=== PATIENT | female | born 1960 | race Hispanic/Latino ===

== ENCOUNTER 2017-02-10 19:25 | Inpatient (IN) | payer MEDICARE, MEDICAID, OTHER ==
[2017-02-10 19:30] VITALS: BMI 26.5
--- NOTE | 2017-02-10 19:37 | ED PDOC ---
Arrival/HPI <Robert Roman - Last Filed: 02/11/17 05:37> - General Historian: Patient - History of Present Illness Time/Duration: Prior to Arrival Symptom Onset: Sudden Symptom Course: Improving <Laron Burns DO - Last Filed: 02/18/17 20:23> - General Chief Complaint: Substance Abuse Time Seen by Provider: 02/10/17 19:30 - History of Present Illness Narrative History of Present Illness (Text): 02/10/17 19:37 56 year old female brought in by EMS after being found unresponsive by her brother at home prior to arrival. EMS reports they gave intranasal Narcan with positive effect. As per EMS, pupils initially pinpoint. On arrival to the emergency department, patient states she was just sleeping. Denies chest pain, shortness of breath, abdominal pain, cough, fever, nausea, vomiting, or other complaints. (Laron Burns DO) Modifying Factors (Text): Intranasal Narcan given with positive effect (Laron Burns DO) Associated Symptoms (Text): None (Laron Burns DO) Past Medical History - Provider Review Nursing Documentation Reviewed: Yes - Past History Past History: Non-Contributing - Infectious Disease Hx of Infectious Diseases: None - Tetanus Immunization Tetanus Immunization: Unknown - Reproductive Menopause: Yes - Cardiac Hx Cardiac Disorders: Yes Hx Congestive Heart Failure: Yes Hx Hypertension: Yes Hx Peripheral Edema: Yes Hx Peripheral Vascular Disease: (VARICOSITIES WITH VEIN STRIPPING) - Pulmonary Hx Respiratory Disorders: Yes Hx Asthma: Yes Hx Bronchitis: Yes Hx Chronic Obstructive Pulmonary Disease (COPD): Yes Hx Pneumonia: Yes - Neurological Hx Neurological Disorder: Yes (NEAR SYNCOPE) Hx Dizziness: Yes Hx Migraine: Yes - HEENT Hx HEENT Disorder: Yes Hx Glaucoma: Yes - Renal Hx Renal Disorder: Yes Hx Kidney Stones: Yes (WITH SX X2 AND LITHOTRYPSY) - Endocrine/Metabolic Hx Endocrine Disorders: Yes Hx Diabetes Mellitus Type 2: Yes (iddm) - Hematological/Oncological Hx Blood Disorders: Yes Hx Anemia: Yes - Integumentary Hx Dermatological Disorder: No - Musculoskeletal/Rheumatological Hx Falls: No - Gastrointestinal Hx Gastrointestinal Disorders: Yes Hx Gastroesophageal Reflux: Yes - Genitourinary/Gynecological Hx Genitourinary Disorders: Yes (CEASEREAN SECTION X 2) Hx Urinary Tract Infection: Yes - Psychiatric Hx Psychophysiologic Disorder: Yes Hx Anxiety: Yes Hx Depression: Yes Hx Substance Use: No - Past Surgical History Past Surgical History: No Previous - Surgical History Hx Cardiac Catheterization: Yes - Anesthesia Hx Anesthesia: Yes Hx Anesthesia Reactions: No Hx Malignant Hyperthermia: No - Suicidal Assessment Feels Threatened In Home Enviroment: No <Laron Burns DO - Last Filed: 02/18/17 20:23> Family/Social History - Physician Review Nursing Documentation Reviewed: Yes Family/Social History: Unknown Family HX Smoking Status: Unknown If Ever Smoked Hx Alcohol Use: No Hx Substance Use: No Hx Substance Use Treatment: No <Laron Burns DO - Last Filed: 02/18/17 20:23> Allergies/Home Meds <Robert Roman - Last Filed: 02/11/17 05:37> <Laron Burns DO - Last Filed: 02/18/17 20:23> Allergies/Adverse Reactions: Allergies amoxicillin Allergy (Verified 11/17/15 09:46) VOMITING naproxen [From Naprosyn] Allergy (Verified 11/17/15 09:46) VOMITING doxycycline calcium [From Vibramycin] Adverse Reaction (Verified 11/17/15 09:46) VOMITING doxycycline hyclate [From Vibramycin] Adverse Reaction (Verified 11/17/15 09:46) VOMITING doxycycline monohydrate [From Vibramycin] Adverse Reaction (Verified 11/17/15 09 :46) VOMITING Home Medications: Home Meds Medication Instructions Recorded Confirmed Insulin Detemir [Levemir] 20 unit SC HS PRN 08/12/13 02/11/17 Escitalopram [Lexapro] 20 mg PO DAILY 12/28/14 02/12/17 Alprazolam [Xanax] 2 mg PO BID PRN 02/12/17 02/12/17 Amitriptyline [Elavil] 50 mg PO HS PRN 02/12/17 02/12/17 Quetiapine Fumarate [Seroquel] 100 mg PO TID 02/12/17 02/12/17 rOPINIRole [Requip] 1 mg PO HS 02/12/17 02/12/17 Review of Systems - Physician Review All systems were reviewed & negative as marked: Yes - Review of Systems Constitutional: absent: Fevers Eyes: absent: Vision Changes ENT: absent: Hearing Changes Respiratory: absent: SOB, Cough Cardiovascular: absent: Chest Pain Gastrointestinal: absent: Abdominal Pain, Nausea, Vomiting Musculoskeletal: absent: Back Pain Neurological: absent: Headache, Dizziness <Laron Burns DO - Last Filed: 02/18/17 20:23> Physical Exam Vital Signs Reviewed: Yes Temperature: Afebrile Blood Pressure: Normal Pulse: Tachycardic Respiratory Rate: Normal Appearance: Positive for: Well-Appearing, Non-Toxic, Comfortable Pain Distress: None Mental Status: Positive for: other (Mildly sleepy) - Systems Exam Head: Present: Atraumatic, Normocephalic Pupils: Present: PERRL Extroacular Muscles: Present: EOMI Conjunctiva: Present: Normal Mouth: Present: Moist Mucous Membranes Neck: Present: Normal Range of Motion Respiratory/Chest: Present: Clear to Auscultation, Good Air Exchange. No: Respiratory Distress, Accessory Muscle Use Cardiovascular: Present: Regular Rate and Rhythm, Normal S1, S2. No: Murmurs Abdomen: Present: Normal Bowel Sounds. No: Tenderness, Distention, Peritoneal Signs Back: Present: Normal Inspection Upper Extremity: Present: Normal Inspection. No: Cyanosis, Edema Lower Extremity: Present: Normal Inspection. No: Edema Neurological: Present: GCS=15, CN II-XII Intact, Speech Normal Skin: Present: Warm, Dry, Normal Color. No: Rashes Psychiatric: Present: Oriented x 3, Other (Mildly sleepy) <Laron Burns DO - Last Filed: 02/18/17 20:23> Vital Signs Temp Pulse Resp BP Pulse Ox 02/11/17 08:30 90 16 137/93 H 96 02/11/17 07:30 85 16 128/94 H 97 02/11/17 06:00 82 02/11/17 05:50 98.2 F 100 H 18 150/98 H 91 L 02/11/17 03:45 98.3 F 99 H 18 138/72 89 L 02/10/17 23:59 98.5 F 102 H 16 123/95 H 88 L 02/10/17 21:31 102 H 16 138/95 H 91 L 02/10/17 19:39 99.5 F 106 H 16 144/98 H 90 L 02/10/17 19:35 103 H 16 134/91 H 90 L Medical Decision Making <Robert Roman - Last Filed: 02/11/17 05:37> - EKG Interpretation Interpreted by ED Physician: Yes Type: 12 lead EKG <Katy Laron JONES - Last Filed: 02/18/17 20:23> ED Course and Treatment: 02/11/17 03:55 Patient felt nauseated and had 1 episode of coffee ground emesis. Denies any abdominal pain or bloody stool. States she took extra Xanax as she was very stressful. Denies any cocaine use, alcohol use, or other illicit substance use. States she was feeling unwell earlier prior to presenting to emergency department. 02/11/17 05:[address] Brady, covering for , agrees with the plan to admit patient to telemetry for GI bleed. Accepts patient under his service. (Abel,Robert Hahn) Impression: 56 year old female brought in by EMS after being found unresponsive by her brother at home prior to arrival. Differential Diagnosis include but are not limited to: Overdose Plan: -- EKG, Chest X-ray -- Labs -- Reassess and disposition Prior Visits: Notes and results from previous visits were reviewed. Patient last seen in ED on 10/29/16 for headache, nausea, photophobia, and admitted for Pneumonia, Urinary tract bacterial infections. Progress Notes: (Laron Burns DO) - Lab Interpretations Lab Results: 02/10/17 19:34 02/10/17 20:25 Lab Results 02/10/17 23:00: Urine Color Yellow, Urine Appearance Clear, Urine pH 6.0, Ur Specific Northrop >= 1.030, Urine Protein 30 H, Urine Glucose (UA) Negative, Urine Ketones Negative, Urine Blood Negative, Urine Nitrate Negative, Urine Bilirubin Negative, Urine Urobilinogen 0.2, Ur Leukocyte Esterase Negative, Urine RBC 0 - 2, Urine WBC 0 - 2, Ur Epithelial Cells 0 - 2, Calcium Oxalate Crystal Occ, Urine Bacteria Few 02/10/17 23:00: Urine Opiates Screen Positive H, Urine Methadone Screen Negative , Ur Barbiturates Screen Negative, Ur Phencyclidine Scrn Negative, Ur Amphetamines Screen Negative, U Benzodiazepines Scrn Positive H, U Oth Cocaine Metabols Negative, U Cannabinoids Screen Negative 02/10/17 20:25: Sodium 133, Potassium 5.3 H, Chloride 98, Carbon Dioxide 26, Anion Gap 14, BUN 13, Creatinine 0.9, Est GFR ( Amer) > 60, Est GFR (Non- Af Amer) > 60, Random Glucose 209 H, Calcium 9.2, Total Bilirubin 0.6, AST 28, ALT 43, Alkaline Phosphatase 92, Lactate Dehydrogenase 392, Total Creatine Kinase 158, Troponin I 0.11 D, Total Protein 8.5 H, Albumin 3.9, Globulin 4.7, Albumin/Globulin Ratio 0.8 L, Lipase 13 L 02/10/17 19:34: Salicylates < 1 L, Acetaminophen < 10.0 L 02/10/17 19:34: Alcohol, Quantitative < 10 02/10/17 19:34: WBC 11.2 H D, RBC 5.10, Hgb 16.1 H, Hct 49.3 H, MCV 96.7, MCH 31.6, MCHC 32.7, RDW 15.9 H, Plt Count 248, MPV 9.9, Gran % 90.3 H, Lymph % ( Auto) 7.1 L, Haakon % (Auto) 2.4, Eos % (Auto) 0.1 L, Baso % (Auto) 0.1, Gran # 10.11 H, Lymph # 0.8 L, Haakon # 0.3, Eos # 0.0, Baso # 0.01 02/10/17 19:32: POC Glucose (mg/dL) 211 H - RAD Interpretation Radiology Orders: 02/10/17 19:31 CHEST PORTABLE [RAD] Stat - EKG Interpretation EKG Interpretation (Text): EKG shows 107 BPM with normal axis, normal intervals, isolated t-wave depressions in lead III (Laron Burns DO) - Medication Orders Current Medication Orders: Discontinued Medications Acetaminophen (Tylenol 325mg Tab) 650 mg PO Q6H PRN PRN Reason: Headache Last Admin: 02/13/17 05:55 Dose: 650 mg Re-Assess: [facility] Pain/Vitals Document 02/13/17 06:55 DS (Rec: 02/13/17 07:01 DS [id number]) Pain Reassessment Is This A Pain ReAssessment? Yes Sleep Is patient sleeping during reassessment? No Presence of Pain Presence of Pain No Acetaminophen/Butalbital/Caffeine (Fioricet) 1 tab PO Q8H PRN PRN Reason: Headache Last Admin: 02/13/17 04:40 Dose: 1 tab Re-Assess: MAR Pain Assessment Document 02/13/17 05:40 DS (Rec: 02/13/17 05:52 DS [id number]) Pain Reassessment Is this a pain reassessment? 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 Albuterol/Ipratropium (Duoneb 3 Mg/0.5 Mg (3 Ml) Ud) 3 ml IH [id number] [facility] Last Admin: 02/13/17 01:07 Dose: Not Given Non-Admin Reason: Patient Refused Alprazolam (Xanax) 0.5 mg PO QID THU PRN Reason: Protocol Alprazolam (Xanax) 0.5 mg PO Q6H PRN; Protocol PRN Reason: Anxiety Last Admin: 02/13/17 08:00 Dose: 0.5 mg Re-Assess: Reassess Psych Meds Document 02/13/17 09:00 RDS (Rec: 02/13/17 09:03 RDS [id number]) Reassess Psych Med Effective Alprazolam (Xanax) 0.5 mg PO ONCE ONE PRN Reason: Protocol Stop: 02/12/17 15:34 Last Admin: 02/12/17 16:30 Dose: 0.5 mg Re-Assess: Reassess Psych Meds Document 02/12/17 17:30 CERAMIC WORKER (Rec: 02/12/17 19:19 CERAMIC WORKER [id number]) Reassess Psych Med Effective Amitriptyline HCl (Elavil) 50 mg PO HS PRN PRN Reason: Restlessness Last Admin: 02/12/17 21:18 Dose: 50 mg Escitalopram Oxalate (Lexapro) 20 mg PO DAILY THU Last Admin: 02/13/17 09:18 Dose: 20 mg Guaifenesin (Robitussin) 200 mg PO STAT STA Stop: 02/12/17 00:38 Last Admin: 02/12/17 00:46 Dose: 200 mg Guaifenesin (Robitussin) 200 mg PO Q4H PRN PRN Reason: Cough and congestion Last Admin: 02/13/17 08:00 Dose: 200 mg Sodium Chloride (Sodium Chloride 0.9%) 1,000 mls @ 100 mls/hr IV .Q10H [facility] Last Admin: 02/12/17 16:29 Dose: 100 mls/hr Pantoprazole Sodium (Protonix 40mg Ivpb) 40 mg in 100 mls @ 20 mls/hr IVPB .Q5H [facility] Last Admin: 02/12/17 16:36 Dose: 20 mls/hr Sodium Chloride (Sodium Chloride 0.9%) 1,000 mls @ 50 mls/hr IV .Q20H [facility] Last Admin: 02/12/17 19:40 Dose: 50 mls/hr Insulin Human Regular (Humulin R Med) 0 units SC ACHS [facility] PRN Reason: Protocol Last Admin: 02/13/17 11:55 Dose: Not Given Non-Admin Reason: Patient Refused Methylprednisolone (Solu-Medrol) 40 mg IVP ONCE ONE Stop: 02/12/17 14:37 Last Admin: 02/12/17 15:31 Dose: 40 mg Nicotine (Nicoderm Cq) 1 patch TD DAILY [facility] Last Admin: 02/13/17 09:18 Dose: 1 patch Pantoprazole Sodium (Protonix Inj) 80 mg IVP STAT STA Stop: 02/11/17 03:52 Last Admin: 02/11/17 04:09 Dose: 80 mg Pantoprazole Sodium (Protonix Ec Tab) 40 mg PO 0630 [facility] Last Admin: 02/13/17 05:35 Dose: 40 mg Pneumococcal Polyvalent Vaccine (Pneumovax 23 Vaccine) 0.5 ml IM .ONCE ONE Stop: 02/11/17 13:49 Quetiapine Fumarate (Seroquel) 100 mg PO TID [facility] PRN Reason: Protocol Last Admin: 02/13/17 09:17 Dose: 100 mg Re-Assess: Reassess Psych Meds Document 02/13/17 10:17 RDS (Rec: 02/13/17 10:37 RDS [id number]) Reassess Psych Med Effective Ropinirole HCl (Requip) 1 mg PO HS [facility] Last Admin: 02/12/17 21:18 Dose: 1 mg <Robert Roman T - Last Filed: 02/11/17 05:37> - Scribe Statement The provider has reviewed the documentation as recorded by the Scribe <Laron Burns DO - Last Filed: 02/18/17 20:23> - Scribe Statement Alphonse Franco Provider Scribe Attestation: All medical record entries made by the Scribe were at my direction and personally dictated by me. I have reviewed the chart and agree that the record accurately reflects my personal performance of the history, physical exam, medical decision making, and the department course for this patient. I have also personally directed, reviewed, and agree with the discharge instructions and disposition. (Laron Burns DO) Disposition/Present on Arrival - Present on Arrival Any Indicators Present on Arrival: Yes - Disposition Have Diagnosis and Disposition been Completed?: Yes Disposition Time: 03:55 Patient Plan: Admission, Telemetry <Robert Roman - Last Filed: 02/11/17 05:37> - Present on Arrival Any Indicators Present on Arrival: No History of DVT/PE: No History of Uncontrolled Diabetes: No Urinary Catheter: Yes (inserted in ed) History of Decub. Ulcer: No History Surgical Site Infection Following: None <Laron Burns DO - Last Filed: 02/18/17 20:23> - Disposition Diagnosis: GI bleed Disposition: HOSPITALIZED Condition: GUARDED
[2017-02-10 19:46] LABS: ADD MANUAL DIFF? NO
[2017-02-10 19:55] LABS: BASO # 0.01 K/mm3 (0.0-2.0); BASO % 0.1 % (0.0-3.0); EOS % 0.1 % (1.5-5.0); GRAN # 10.11 (1.4-6.5); GRAN % 90.3 % (50.0-68.0); HEMATOCRIT 49.3 % (36.0-48.0); LYMPH # 0.8 (1.2-3.4); LYMPH % 7.1 % (22.0-35.0); MEAN CELL VOLUME 96.7 fL (80.0-105.0); MEAN CORPUSCULAR HEMOGLOBIN 31.6 pg (25.0-35.0); MEAN CORPUSCULAR HGB CONC 32.7 g/dl (31.0-37.0); MEAN PLATELET VOLUME 9.9 fl (7.0-11.0); MONO # 0.3 (0.1-0.6); MONO % 2.4 % (1.0-6.0); PLATELET COUNT 248 10^3/uL (120.0-450.0); RED CELL DISTRIBUTION WIDTH 15.9 % (11.5-14.5); WHITE BLOOD COUNT 11.2 10^3/ul (4.5-11.0)
[2017-02-10 20:44] LABS: ALB/GLOB RATIO 0.8 (1.1-1.8); ALKALINE PHOSPHATASE 92 U/L (38-133); ALT/SGPT 43 U/L (7-56); AST/SGOT 28 U/L (15-39); BILIRUBIN,TOTAL 0.6 mg/dL (0.2-1.3); BLOOD UREA NITROGEN 13 mg/dL (7-21); CALCIUM 9.2 mg/dL (8.4-10.5); CARBON DIOXIDE 26 mmol/L (21-33); CHLORIDE 98 mmol/L (98-107); GFR AFRICAN-AMERICAN > 60; GLUCOSE,RANDOM 209 mg/dL (70-110); LIPASE 13 U/L (23-300); POTASSIUM 5.3 mmol/L (3.6-5.0); SODIUM 133 mmol/L (132-148); TOTAL PROTEIN 8.5 g/dL (5.8-8.3)
[2017-02-10 20:55] LABS: TROPONIN I 0.11 ng/mL
[2017-02-10] MEDS: Sodium Chloride 0.9% 1,000 ML IV SCH (21:22)
[2017-02-10 23:15] LABS: URINE BILIRUBIN NEGATIVE (NEGATIVE); URINE BLOOD NEGATIVE (NEGATIVE); URINE GLUCOSE (UA) NEGATIVE (NEGATIVE); URINE KETONE NEGATIVE (NEGATIVE); URINE LEUKOCYTE ESTERASE NEGATIVE Leu/uL (NEGATIVE); URINE PROTEIN 30 mg/dL (<30 mg/dL); URINE UROBILINOGEN 0.2 E.U./dL (<1 E.U./dL)
[2017-02-10 23:17] LABS: URINE APPEARANCE CLEAR (CLEAR); URINE COLOR YELLOW (YELLOW)
[2017-02-10 23:20] LABS: URINE BACTERIA FEW (NEG); URINE CALCIUM OXALATE CRYSTALS OCC /hpf; URINE EPITHELIAL CELLS 0 - 2 /hpf (0-5); URINE RBC 0 - 2 /hpf (0-2); URINE WBC 0 - 2 /hpf (0-6)
[2017-02-11] MEDS: Pantoprazole 40mg/100ml IVPB 40 MG/100 ML BAG IVPB SCH ×4 (04:11→22:35)
--- NOTE | 2017-02-11 08:57 | RAD ---
HISTORY: overdose COMPARISON: 10/30/2016 FINDINGS: LUNGS: No definite infiltrate. Diffuse interstitial prominence, nonspecific. PLEURA: No significant pleural effusion identified, no pneumothorax apparent. CARDIOVASCULAR: Normal. OSSEOUS STRUCTURES: No significant abnormalities. VISUALIZED UPPER ABDOMEN: Normal. OTHER FINDINGS: None. IMPRESSION: Diffuse interstitial prominence. No focal infiltrate.
--- NOTE | 2017-02-11 13:27 | CARD ---
APPROVED REPORT EKG Measurement Heart [id number] <Conclusion> Sinus tachycardia Rightward axis RVCD
[2017-02-11] MEDS ORDERED: Pneumococcal 23-Valent Vaccine IM ONE (13:48)
[2017-02-11] MEDS: Apap-Butalbital-Caffeine 325-50-40mg Tab PO PRN (15:00)
--- NOTE | 2017-02-11 16:18 | CP.PCM.CON ---
History of Present Illness - History of Present Illness History of Present Illness: Seen and examined at beside this afternoon, chart was reviewed. Request for consult is for GIB. HPI: This is 56 year old female with PMH of migraine headache, COPD,DM type II, Anxiety, HTN, was brought to the ER for being found unresponsive. She was found by her brother and EMS was called who administered Narcan intranasally. Patient reported that she took an extra Xanax because she couldnt sleep. She is a bit drowsy during interview but easily arousable. She recalls having multiple episodes of vomiting, she is unsure if it was coffee ground emesis, the details she said is hazy. But in the ER she was nauseous and vomited X2 in the ER that was coffee ground. She recalls Hx of PUD , she had EGD a few years ago, and colon >3 years ago and recalls polyps. Denies NSAID use except for baby aspirin. Denies sob, chest pain, unintentional weight loss, loss of appetite, melena or BRBPR. Denies reflux. Her last BM was yesterday and was formed , no blood noted. PMH: COPD, colon polyps,anxiety, HTN, CHF, syncope,renal stones, DM, cardiac cath, no stent, stated that she has a "spot" on her lung and is going for a chest ct. Migrain, PUD PSH: c sectionx2, cardiac cath, no stent, lithotripsy, egd/colon >3 years ago. ALLERGIES: amoxicillin,naproxen, doxycycline FHX: noncontributory at this time MEDS: reviewed as per MAR Social HX: denies smoking, etoh, drugs, going through a divorce. ROS: systems reviewed with positive findings, see HPI. Past Patient History - Infectious Disease Hx of Infectious Diseases: None - Tetanus Immunizations Tetanus Immunization: Unknown - Past Medical History & Family History Past Medical History?: Yes - Past Social History Smoking Status: Current Some Days Smoker - CARDIAC Hx Cardiac Disorders: Yes Hx Congestive Heart Failure: Yes Hx Hypertension: Yes Hx Peripheral Edema: Yes Hx Peripheral Vascular Disease: (VARICOSITIES WITH VEIN STRIPPING) - PULMONARY Hx Respiratory Disorders: Yes Hx Asthma: Yes Hx Bronchitis: Yes Hx Chronic Obstructive Pulmonary Disease (COPD): Yes Hx Pneumonia: Yes - NEUROLOGICAL Hx Neurological Disorder: Yes (NEAR SYNCOPE) Hx Dizziness: Yes Hx Migraine: Yes - HEENT Hx HEENT Problems: Yes Hx Glaucoma: Yes - RENAL Hx Chronic Kidney Disease: Yes Hx Kidney Stones: Yes (WITH SX X2 AND LITHOTRYPSY) - ENDOCRINE/METABOLIC Hx Endocrine Disorders: Yes Hx Diabetes Mellitus Type 2: Yes (iddm) - HEMATOLOGICAL/ONCOLOGICAL Hx Blood Disorders: Yes Hx Anemia: Yes - INTEGUMENTARY Hx Dermatological Problems: No - MUSCULOSKELETAL/RHEUMATOLOGICAL Hx Falls: No - GASTROINTESTINAL Hx Gastrointestinal Disorders: Yes Hx Gastroesophageal Reflux: Yes - GENITOURINARY/GYNECOLOGICAL Hx Genitourinary Disorders: Yes (CEASEREAN SECTION X 2) Hx Urinary Tract Infection: Yes - PSYCHIATRIC Hx Psychophysiologic Disorder: Yes Hx Anxiety: Yes Hx Depression: Yes Hx Substance Use: No - SURGICAL HISTORY Hx Surgeries: Yes (VEIN STRIPPING,C/S X 2, KIDNEY STONES) Hx Cardiac Catheterization: Yes - ANESTHESIA Hx Anesthesia: Yes Hx Anesthesia Reactions: No Hx Malignant Hyperthermia: No Meds Allergies/Adverse Reactions: Allergies Allergy/AdvReac Type Severity Reaction Status Date / Time amoxicillin Allergy VOMITING Verified 11/17/15 09:46 naproxen [From Naprosyn] Allergy VOMITING Verified 11/17/15 09:46 doxycycline calcium AdvReac VOMITING Verified 11/17/15 09:46 [From Vibramycin] doxycycline hyclate AdvReac VOMITING Verified 11/17/15 09:46 [From Vibramycin] doxycycline monohydrate AdvReac VOMITING Verified 11/17/15 09:46 [From Vibramycin] - Medications Medications: Current Medications Acetaminophen (Tylenol 325mg Tab) 650 mg PO Q6H PRN PRN Reason: Headache Last Admin: 02/11/17 12:17 Dose: 650 mg Acetaminophen/Butalbital/Caffeine (Fioricet) 1 tab PO Q8H PRN PRN Reason: Headache Last Admin: 02/11/17 15:00 Dose: 1 tab Sodium Chloride (Sodium Chloride 0.9%) 1,000 mls @ 100 mls/hr IV .Q10H THU Last Admin: 02/10/17 21:22 Dose: 100 mls/hr Pantoprazole Sodium (Protonix 40mg Ivpb) 40 mg in 100 mls @ 20 mls/hr IVPB .Q5H THU Last Admin: 02/11/17 14:59 Dose: 20 mls/hr Physical Exam - Constitutional Appears: No Acute Distress - Head Exam Head Exam: NORMAL INSPECTION - Eye Exam Eye Exam: Normal appearance, PERRL. absent: Scleral icterus - ENT Exam ENT Exam: Mucous Membranes Moist - Neck Exam Neck exam: Positive for: Normal Inspection - Respiratory Exam Respiratory Exam: Clear to Auscultation Bilateral, NORMAL BREATHING PATTERN. absent: Respiratory Distress - Cardiovascular Exam Cardiovascular Exam: +S1, +S2 - GI/Abdominal Exam GI & Abdominal Exam: Normal Bowel Sounds, Soft. absent: Distended, Guarding, Organomegaly, Rebound, Tenderness - Extremities Exam Extremities exam: Positive for: normal inspection. Negative for: calf tenderness, pedal edema - Neurological Exam Neurological exam: Alert, Oriented x3 - Skin Skin Exam: Dry, Warm Results - Vital Signs Recent Vital Signs: Last Vital Signs Temp 98.3 F 02/11/17 13:23 Pulse 97 H 02/11/17 14:05 Resp 18 02/11/17 14:05 BP 135/91 H 02/11/17 14:05 Pulse Ox 93 L 02/11/17 14:05 - Labs Result Diagrams: 02/10/17 19:34 02/10/17 20:25 Assessment & Plan - Assessment and Plan (Free Text) Assessment: ASSESSMENT: OD Xanax GIB/Hematemesis, R/O Ursula Cornelia tear, PUD H/O colon polyps HTN DM Anxiety PLAN: NPO, continue IVF for hydration if no nausea may start clear liquid diet monitor H/H on Protonix drip psych evaluation would benefit from upper GI eval when optimal, pt s/p Narcan.OD on Xanax, Hgb is steady no current events of bleeding. thank you for this consult and for allowing us to participate in your patients care, will make further recommendations based upon patients clinical course. Seen and discussed with Dr. Esqueda.
[2017-02-11] MEDS: Sodium Chloride 0.9% 1,000 ML IV SCH ×2 (22:36→23:12)
[2017-02-12] MEDS: Pantoprazole 40mg/100ml IVPB 40 MG/100 ML BAG IVPB SCH ×5 (00:30→16:36)
[2017-02-12] MEDS ORDERED: guaiFENesin 200 mg/10 ml Syrup UD PO STA (00:37)
[2017-02-12] MEDS: Apap-Butalbital-Caffeine 325-50-40mg Tab PO PRN (00:46)
[2017-02-12] MEDS: Sodium Chloride 0.9% 1,000 ML IV SCH ×2 (01:53→16:29)
--- NOTE | 2017-02-12 08:35 | CON ---
DATE: 02/11/2017 This patient was seen and evaluated earlier today. This is an addendum to the GI consultation report dictated by Kelsi Ahuja APN. No further episodes of vomiting since admission to the ER: PHYSICAL EXAMINATION: GENERAL: The patient is comfortable. ABDOMEN: Soft. No tenderness. IMPRESSION/PLAN: This 56-year-old patient is admitted with nausea, vomiting x 2 with coffee-ground material. The patient was brought to the Emergency Room after being found unresponsive at home. The patient has taken extra doses of Xanax. Would recommend at this point close monitoring of the hemoglobin and hematocrit. We will start the patient on a clear liquid diet. The patient will continue proton pump inhibitor. The patient would benefit from upper gastrointestinal endoscopy. The timing will be based on the clinical course. Thank you very much for allowing us to participate in the care of the patient. Leo Esqueda MD cc: [id number] TT: 02/12/2017 08:35:02 Confirmation # [id number] Dictation # [id number] [email or web address] [email or web address]
[2017-02-12] MEDS: guaiFENesin 200 mg/10 ml Syrup UD PO PRN ×2 (12:40→18:03)
[2017-02-12] MEDS ORDERED: MethylPREDNISolone 40 mg Vial IVP ONE (14:36)
--- NOTE | 2017-02-12 14:48 | CP.PCM.HP ---
<Lyle Alvarado - Last Filed: 02/12/17 14:39> History of Present Illness - History of Present Illness History of Present Illness: This is 56 year old female with PMH of migraine headache, COPD,DM type II, Anxiety, HTN, was brought to the ER for being found unresponsive 2 days ago. She was found by her brother and EMS was called who administered Narcan intranasally. Patient reported that she took an extra Xanax because she couldn' t sleep. In the ER she was nauseous and had coffee ground emesis. She recalls Hx of PUD, she had EGD a few years ago, and colon >3 years ago and recalls polyps. She is also following up with a pulmonology doctor in [place] regards to a mass in her lung. Today pt appears well and in NAD. She only complains of cough with no sore throat, which she attributes to her long history of smoking. She denies headache, fever, chills, chest pain, difficulty breathing, abdominal pain , nausea, vomiting, diarrhea, melena or BRBPR. Denies NSAID use except for baby aspirin. PMH: COPD, colon polyps,anxiety, HTN, CHF, syncope,renal stones, DM, cardiac cath, no stent, stated that she has a "spot" on her lung and is going for a chest ct. Migrain, PUD PSH: c sectionx2, cardiac cath, no stent, lithotripsy, surgery to remove bl kidney stones 35 years ago egd/colon >3 years ago. ALL: amoxicillin,naproxen, doxycycline FHX: mother and father in their 60's from heart failure sister has diabetes brother is healthy Social HX: unemployed lives with brother denies smoking, etoh, was taking pain pills, going through a divorce. Present on Admission - Present on Admission Any Indicators Present on Admission: No Review of Systems - Constitutional Constitutional: absent: Chills, Fatigue, Fever, Headache - EENT Eyes: absent: Blind Spots, Blurred Vision, Change in Vision Nose/Mouth/Throat: absent: Sore Throat, Neck Pain - Cardiovascular Cardiovascular: absent: Chest Pain, Chest Pain at Rest, Dyspnea - Respiratory Respiratory: absent: Cough, Dyspnea, Hemoptysis, Dyspnea on Exertion - Gastrointestinal Gastrointestinal: absent: Abdominal Pain, Diarrhea, Nausea, Vomiting - Genitourinary Genitourinary: absent: Difficulty Urinating, Dysuria, Flank Pain, Hematuria, Pyuria, Urinary Incontinence, Urinary Urgency - Musculoskeletal Musculoskeletal: absent: Joint Swelling, Limited Range of Motion, Neck Pain, Numbness, Stiffness, Tingling - Integumentary Integumentary: absent: Rash, Skin Pain, Swelling - Neurological Neurological: absent: Headaches, Loss of Vision, Syncope, Tingling, Weakness - Psychiatric Psychiatric: Anxiety, Depression - Endocrine Endocrine: absent: Cold Intolorance, Fatigue, Heat Intolorance, Palpitations, Polydipsia, Polyphagia, Polyuria Past Patient History - Infectious Disease Hx of Infectious Diseases: None - Tetanus Immunizations Tetanus Immunization: Unknown - Past Medical History & Family History Past Medical History?: Yes - Past Social History Smoking Status: Current Some Days Smoker Alcohol: None Drugs: Opiates (pills) Home Situation {Lives}: With Family - CARDIAC Hx Cardiac Disorders: Yes Hx Congestive Heart Failure: Yes Hx Hypertension: No Hx Peripheral Edema: Yes Hx Peripheral Vascular Disease: (VARICOSITIES WITH VEIN STRIPPING) - PULMONARY Hx Respiratory Disorders: Yes Hx Asthma: Yes Hx Bronchitis: Yes Hx Chronic Obstructive Pulmonary Disease (COPD): Yes Hx Pneumonia: Yes - NEUROLOGICAL Hx Neurological Disorder: Yes (NEAR SYNCOPE) Hx Dizziness: Yes Hx Migraine: Yes - HEENT Hx HEENT Problems: Yes Hx Glaucoma: Yes - RENAL Hx Chronic Kidney Disease: Yes Hx Kidney Stones: Yes (WITH SX X2 AND LITHOTRYPSY) - ENDOCRINE/METABOLIC Hx Endocrine Disorders: Yes Hx Diabetes Mellitus Type 2: Yes (iddm) - HEMATOLOGICAL/ONCOLOGICAL Hx Blood Disorders: Yes Hx Anemia: Yes - INTEGUMENTARY Hx Dermatological Problems: No - MUSCULOSKELETAL/RHEUMATOLOGICAL Hx Falls: No - GASTROINTESTINAL Hx Gastrointestinal Disorders: Yes Hx Gastroesophageal Reflux: Yes - GENITOURINARY/GYNECOLOGICAL Hx Genitourinary Disorders: Yes (CEASEREAN SECTION X 2) Hx Urinary Tract Infection: Yes - PSYCHIATRIC Hx Psychophysiologic Disorder: Yes Hx Anxiety: Yes Hx Depression: Yes Hx Substance Use: No - SURGICAL HISTORY Hx Surgeries: Yes (VEIN STRIPPING,C/S X 2, KIDNEY STONES) Hx Cardiac Catheterization: Yes - ANESTHESIA Hx Anesthesia: Yes Hx Anesthesia Reactions: No Hx Malignant Hyperthermia: No Meds Allergies/Adverse Reactions: Allergies Allergy/AdvReac Type Severity Reaction Status Date / Time amoxicillin Allergy VOMITING Verified 11/17/15 09:46 naproxen [From Naprosyn] Allergy VOMITING Verified 11/17/15 09:46 doxycycline calcium AdvReac VOMITING Verified 11/17/15 09:46 [From Vibramycin] doxycycline hyclate AdvReac VOMITING Verified 11/17/15 09:46 [From Vibramycin] doxycycline monohydrate AdvReac VOMITING Verified 11/17/15 09:46 [From Vibramycin] Physical Exam - Head Exam Head Exam: ATRAUMATIC, NORMOCEPHALIC - Eye Exam Eye Exam: EOMI, Normal appearance - ENT Exam ENT Exam: Mucous Membranes Moist - Neck Exam Neck exam: Positive for: Full Rom. Negative for: Lymphadenopathy - Respiratory Exam Respiratory Exam: Clear to Auscultation Bilateral, Wheezes, NORMAL BREATHING PATTERN - Cardiovascular Exam Cardiovascular Exam: REGULAR RHYTHM, RRR, +S1, +S2. absent: JVD - GI/Abdominal Exam GI & Abdominal Exam: Normal Bowel Sounds, Soft. absent: Tenderness - Extremities Exam Extremities exam: Positive for: full ROM, normal inspection. Negative for: pedal edema, tenderness - Back Exam Back exam: NORMAL INSPECTION - Neurological Exam Neurological exam: Alert, Oriented x3 - Psychiatric Exam Psychiatric exam: Normal Affect, Normal Mood - Skin Skin Exam: Dry, Intact, Normal Color, Warm Results - Vital Signs Recent Vital Signs: Last Vital Signs Temp 98.2 F 02/12/17 12:00 Pulse 84 02/12/17 12:00 Resp 18 02/12/17 12:00 BP 156/91 H 02/12/17 12:00 Pulse Ox 99 02/12/17 06:00 - Labs Result Diagrams: 02/10/17 19:34 02/10/17 20:25 Assessment & Plan - Assessment and Plan (Free Text) Assessment: 56F with pmh of significant for COPD, anemia, found unresponsive Plan: Syncope -Neuro -Head CT ordered -Cardio -Echo from Oct is negative -Trop x1 .11 -CXR no cardiomegaly -EKG sinus tachy -GI -blood loss - coffee ground emesis in the ED x2 -Consult - Dr. Esqueda - appreciate rec -Protonix -Upper EGD when appropriate -Vaso-Vagal -Orthostatics DM -HgbA1C -ISS Medium COPD -Hx of RUL mass - too f/u at [place] -Duonebs q6prn -Robitussin Migraines -Fiorcet Anxiety/Depression -Seroquel 100mg TID -Xanax .5mg q6 prn -Amytriptylene 50mg 1HS prn -Lexapro 20mg daily Restless Leg Syndrome -Requip Smoking -Kym 14 - Date & Time Date: 02/12/17 Time: 14:00 <Angelina Steele B - Last Filed: 02/13/17 14:38> Results - Vital Signs Recent Vital Signs: Last Vital Signs Temp 97 F L 02/13/17 12:00 Pulse 98 H 02/13/17 12:00 Resp 18 02/13/17 12:00 BP 149/95 H 02/13/17 12:00 Pulse Ox 94 L 02/13/17 05:17 - Labs Result Diagrams: 02/13/17 07:40 02/13/17 07:40 Labs: Laboratory Results - last 24 hr 02/12/17 02/12/17 02/12/17 15:00 15:00 15:00 WBC 8.2 D RBC 4.54 Hgb 14.1 Hct 43.2 MCV 95.2 MCH 31.1 MCHC 32.6 RDW 14.8 H Plt Count 231 MPV 9.8 Gran % Lymph % (Auto) [place] % (Auto) Eos % (Auto) Baso % (Auto) Gran # Lymph # [place] # Eos # Baso # Sodium 137 Potassium 4.6 Chloride 102 Carbon Dioxide 29 Anion Gap 11 BUN 10 Creatinine 0.6 Est GFR ( Amer) > 60 Est GFR (Non-Af Amer) > 60 Random Glucose 92 Calcium 8.7 Total Bilirubin 0.9 AST 20 ALT 31 Alkaline Phosphatase 78 Troponin I 0.11 Total Protein 7.5 Albumin 3.4 Globulin 4.1 Albumin/Globulin Ratio 0.8 L 02/13/17 02/13/17 07:40 07:40 WBC 7.1 RBC 4.82 Hgb 14.9 Hct 45.0 MCV 93.4 MCH 30.9 MCHC 33.1 RDW 14.4 Plt Count 232 MPV 9.7 Gran % 66.4 Lymph % (Auto) 27.6 [place] % (Auto) 5.8 Eos % (Auto) 0.1 L Baso % (Auto) 0.1 Gran # 4.72 Lymph # 2.0 [place] # 0.4 Eos # 0.0 Baso # 0.01 Sodium 140 Potassium 3.8 Chloride 103 Carbon Dioxide 28 Anion Gap 13 BUN 8 Creatinine 0.6 Est GFR ( Amer) > 60 Est GFR (Non-Af Amer) > 60 Random Glucose 99 Calcium 9.2 Total Bilirubin 0.7 AST 14 L ALT 32 Alkaline Phosphatase 85 Troponin I Total Protein 7.9 Albumin 3.5 Globulin 4.5 Albumin/Globulin Ratio 0.8 L Attending/Attestation - Attestation I have personally seen and examined this patient.: Yes I have fully participated in the care of the patient.: Yes I have reviewed all pertinent clinical information: Yes Notes (Text): I have seen and examined the patient at bedside with the resident. Agree with the H&P above with the following additions/ exceptions: Briefly this is 56 year old female with history of migraine headache, COPD, DM-2, anxiety, HTN, PUD, colonic polyps, renal stones s/p lithotripsy, RUL lung mass, restless leg syndrome who got admitted for evaluation of AMS/ unresponsiveness which was most likely due to opioids/ benzodiazepine over use as she woke up after narcan. Patient reported that as she was unable to sleep, she took extra xanax. She denies homicidal or suicidal ideation. In the ER, she had coffee ground emesis. Hemoglobin stable. Will repeat all the labs. Will order orthostatics, CT head and carotid ultrasound. Last echo done in October was reviewed which was normal. Upon admission, first set of troponin was indeterminate.. EKG revealed ST however there was no acute ischemic changes. CXR normal. Will monitor serial troponins and ekg. Patient reports that she does not take Insulin at home. Will order hba1c. She knows that she has a RUL lung mass and she is supposed to follow up in [place] for biopsy. She is on multiple psych medications. Awaiting psych consult for adjustment of medications. Tobacco cessation counselling provided. Upon discharge patient will follow up with Dr Prem Brady.
--- NOTE | 2017-02-12 16:25 | CT ---
PROCEDURE: CT HEAD WITHOUT CONTRAST. HISTORY: syncope COMPARISON: Head CT from 10/01/1960. MRI brain from 11/01/2016. TECHNIQUE: Axial computed tomography images were obtained through the head/brain without intravenous contrast. Radiation dose: Total exam DLP = 822.62 mGy-cm. This CT exam was performed using one or more of the following dose reduction techniques: Automated exposure control, adjustment of the mA and/or kV according to patient size, and/or use of iterative reconstruction technique. FINDINGS: HEMORRHAGE: No intracranial hemorrhage. BRAIN: No mass effect or edema. No atrophy or chronic microvascular ischemic changes. VENTRICLES: Unremarkable. No hydrocephalus. CALVARIUM: Unremarkable. PARANASAL SINUSES: Retention cysts versus polyps in the right maxillary sinus. MASTOID AIR CELLS: Unremarkable as visualized. No inflammatory changes. OTHER FINDINGS: None. IMPRESSION: No CT evidence of acute intracranial hemorrhage or acute territorial infarct. Acute infarction may be CT occult within first 24 hours. If a focal deficit persists, consider followup CT or MRI for further evaluation. Mild sinus disease.
[2017-02-12 16:50] LABS: HEMATOCRIT 43.2 % (36.0-48.0); MEAN CELL VOLUME 95.2 fL (80.0-105.0); MEAN CORPUSCULAR HEMOGLOBIN 31.1 pg (25.0-35.0); MEAN CORPUSCULAR HGB CONC 32.6 g/dl (31.0-37.0); MEAN PLATELET VOLUME 9.8 fl (7.0-11.0); RED CELL DISTRIBUTION WIDTH 14.8 % (11.5-14.5); WHITE BLOOD COUNT 8.2 10^3/ul (4.5-11.0)
[2017-02-12 17:13] LABS: ALB/GLOB RATIO 0.8 (1.1-1.8); ALKALINE PHOSPHATASE 78 U/L (38-133); ALT/SGPT 31 U/L (7-56); AST/SGOT 20 U/L (15-39); BILIRUBIN,TOTAL 0.9 mg/dL (0.2-1.3); BLOOD UREA NITROGEN 10 mg/dL (7-21); CALCIUM 8.7 mg/dL (8.4-10.5); CARBON DIOXIDE 29 mmol/L (21-33); CHLORIDE 102 mmol/L (98-107); GFR AFRICAN-AMERICAN > 60; GLUCOSE,RANDOM 92 mg/dL (70-110); POTASSIUM 4.6 mmol/L (3.6-5.0); SODIUM 137 mmol/L (132-148); TOTAL PROTEIN 7.5 g/dL (5.8-8.3)
[2017-02-12] MEDS ORDERED: Apap-Butalbital-Caffeine 325-50-40mg Tab PO SCH (18:00)
[2017-02-12] MEDS: Insulin Reg-MEDIUM-Coverage SC SCH ×2 (18:06→22:05)
[2017-02-12] MEDS ORDERED: Sodium Chloride 0.9% 1,000 ML IV SCH (18:46)
[2017-02-12] MEDS: Albuterol-Ipratrop 3 mg / 0.5 (3 ml) UD IH SCH (19:27)
[2017-02-13 01:03] VITALS: O2SAT 94
[2017-02-13] MEDS: Albuterol-Ipratrop 3 mg / 0.5 (3 ml) UD IH SCH (01:07)
[2017-02-13] MEDS: guaiFENesin 200 mg/10 ml Syrup UD PO PRN ×2 (01:52→08:00)
[2017-02-13] MEDS: Apap-Butalbital-Caffeine 325-50-40mg Tab PO PRN (04:40)
--- NOTE | 2017-02-13 05:21 | CP.PCM.PCO ---
Addendum Addendum: 02/13/17 05:18 Patient was seen and evaluated on 02/12/17. Please refer to dictation #[id number] for full H&P. I spoke with brother, Magdaleno [phone], who confirmed that presentation was NOT secondary to a suicide attempt. Patient reports good functioning and plans to f/u with Dr. Pozo next week. Denies other issues and defers on medication changes. Medical team to c/w management, please ensure patient does not suffer benzo withdrawal on the unit and c/w her standing psychiatric medicaitons. She is psychiatrically cleared.
[2017-02-13] MEDS ORDERED: Pantoprazole 40 mg EC Tab PO SCH (06:30)
[2017-02-13] MEDS: Insulin Reg-MEDIUM-Coverage SC SCH ×2 (07:39→11:55)
[2017-02-13 07:53] LABS: ADD MANUAL DIFF? NO
[2017-02-13 08:00] LABS: BASO # 0.01 K/mm3 (0.0-2.0); BASO % 0.1 % (0.0-3.0); EOS % 0.1 % (1.5-5.0); GRAN # 4.72 (1.4-6.5); GRAN % 66.4 % (50.0-68.0); LYMPH % 27.6 % (22.0-35.0); MEAN CELL VOLUME 93.4 fL (80.0-105.0); MEAN CORPUSCULAR HEMOGLOBIN 30.9 pg (25.0-35.0); MEAN CORPUSCULAR HGB CONC 33.1 g/dl (31.0-37.0); MEAN PLATELET VOLUME 9.7 fl (7.0-11.0); MONO # 0.4 (0.1-0.6); MONO % 5.8 % (1.0-6.0); PLATELET COUNT 232 10^3/uL (120.0-450.0); RED CELL DISTRIBUTION WIDTH 14.4 % (11.5-14.5); WHITE BLOOD COUNT 7.1 10^3/ul (4.5-11.0)
[2017-02-13 08:23] LABS: ALB/GLOB RATIO 0.8 (1.1-1.8); ALKALINE PHOSPHATASE 85 U/L (38-133); ALT/SGPT 32 U/L (7-56); AST/SGOT 14 U/L (15-39); BILIRUBIN,TOTAL 0.7 mg/dL (0.2-1.3); BLOOD UREA NITROGEN 8 mg/dL (7-21); CALCIUM 9.2 mg/dL (8.4-10.5); CARBON DIOXIDE 28 mmol/L (21-33); CHLORIDE 103 mmol/L (98-107); GFR AFRICAN-AMERICAN > 60; GLUCOSE,RANDOM 99 mg/dL (70-110); POTASSIUM 3.8 mmol/L (3.6-5.0); SODIUM 140 mmol/L (132-148); TOTAL PROTEIN 7.9 g/dL (5.8-8.3)
--- NOTE | 2017-02-13 08:47 | PN ---
DATE: 02/12/2017 SUBJECTIVE: This patient was seen and evaluated earlier today. The patient's family was at bedside. The patient is now tolerating the liquid diet. No further episodes of vomiting. PHYSICAL EXAMINATION: VITAL SIGNS: Temperature is 97.3, pulse is 86, blood pressure 158/108, respiratory rate 18. HEENT: Atraumatic, anicteric. NECK: Supple. HEART: S1, S2 heard. LUNGS: Bilateral air entry present. ABDOMEN: Soft. There is no tenderness. EXTREMITIES: No edema. LABORATORY DATA: Hemoglobin 14.1, hematocrit 43.2, WBC is 8.2, platelets 231. BUN 10, creatinine 0.6. IMPRESSION/PLAN: This 56-year-old patient admitted with upper gastrointestinal bleeding coffee ground vomitus. No further episodes. The patient has a history of passed out after has increased dose of benzodiazepines. His reasonably thing is the patient has been on Protonix, which has been discontinued and changed to p.o. Protonix. Follow up of the hemoglobin and hematocrit. We will advance the diet. The patient would benefit from the elective upper GI endoscopic evaluation. This was discussed with the patient and the family who was at bedside. Thank you very much for allowing us to participate in the care of the patient. Leo Esqueda MD cc: [phone] TT: 02/13/2017 00:36:08 Confirmation # [id number] Dictation # [id number] md 02/13/2017 07:46:37 ADY
[2017-02-13 11:33] VITALS: PULSE 98
[2017-02-13 12:36] VITALS: BP 149/95; RESP 18; TEMP 97
--- NOTE | 2017-02-13 18:55 | CP.PCM.DIS ---
<Lyle Alvarado - Last Filed: 02/13/17 18:56> Provider - Provider Date of Admission: 02/11/17 05:12 Attending physician: Angelina Steele MD Primary care physician: Danny Yañez MD Time Spent in preparation of Discharge (in minutes): 35 Diagnosis - Discharge Diagnosis (1) Altered mental status Status: Acute (2) Drug overdose Status: Acute (3) Syncope Status: Acute Hospital Course - Lab Results Lab Results: Most Recent Lab Values WBC 7.1 10^3/ul (4.5-11.0) 02/13/17 07:40 RBC 4.82 10^6/uL (3.5-6.1) 02/13/17 07:40 Hgb 14.9 gm/dL (12.0-16.0) 02/13/17 07:40 Hct 45.0 % (36.0-48.0) 02/13/17 07:40 MCV 93.4 fL (80.0-105.0) 02/13/17 07:40 MCH 30.9 pg (25.0-35.0) 02/13/17 07:40 MCHC 33.1 g/dl (31.0-37.0) 02/13/17 07:40 RDW 14.4 % (11.5-14.5) 02/13/17 07:40 Plt Count 232 10^3/uL (120.0-450.0) 02/13/17 07:40 MPV 9.7 fl (7.0-11.0) 02/13/17 07:40 Gran % 66.4 % (50.0-68.0) 02/13/17 07:40 Lymph % (Auto) 27.6 % (22.0-35.0) 02/13/17 07:40 [place] % (Auto) 5.8 % (1.0-6.0) 02/13/17 07:40 Eos % (Auto) 0.1 % (1.5-5.0) L 02/13/17 07:40 Baso % (Auto) 0.1 % (0.0-3.0) 02/13/17 07:40 Gran # 4.72 (1.4-6.5) 02/13/17 07:40 Lymph # 2.0 (1.2-3.4) 02/13/17 07:40 [place] # 0.4 (0.1-0.6) 02/13/17 07:40 Eos # 0.0 (0.0-0.7) 02/13/17 07:40 Baso # 0.01 K/mm3 (0.0-2.0) 02/13/17 07:40 Sodium 140 mmol/L (132-148) 02/13/17 07:40 Potassium 3.8 mmol/L (3.6-5.0) 02/13/17 07:40 Chloride 103 mmol/L (98-107) 02/13/17 07:40 Carbon Dioxide 28 mmol/L (21-33) 02/13/17 07:40 Anion Gap 13 (10-20) 02/13/17 07:40 BUN 8 mg/dL (7-21) 02/13/17 07:40 Creatinine 0.6 mg/dL (0.5-1.4) 02/13/17 07:40 Est GFR ( Amer) > 60 02/13/17 07:40 Est GFR (Non-Af Amer) > 60 02/13/17 07:40 POC Glucose (mg/dL) 211 mg/dL (65-110) H 02/10/17 19:32 Random Glucose 99 mg/dL (70-110) 02/13/17 07:40 Calcium 9.2 mg/dL (8.4-10.5) 02/13/17 07:40 Total Bilirubin 0.7 mg/dL (0.2-1.3) 02/13/17 07:40 AST 14 U/L (15-39) L 02/13/17 07:40 ALT 32 U/L (7-56) 02/13/17 07:40 Alkaline Phosphatase 85 U/L (38-133) 02/13/17 07:40 Lactate Dehydrogenase 392 U/L (333-699) 02/10/17 20:25 Total Creatine Kinase 158 U/L (35-230) 02/10/17 20:25 Troponin I 0.11 ng/mL 02/12/17 15:00 Total Protein 7.9 g/dL (5.8-8.3) 02/13/17 07:40 Albumin 3.5 g/dL (3.0-4.8) 02/13/17 07:40 Globulin 4.5 gm/dL 02/13/17 07:40 Albumin/Globulin Ratio 0.8 (1.1-1.8) L 02/13/17 07:40 Lipase 13 U/L (23-300) L 02/10/17 20:25 Urine Color Yellow (YELLOW) 02/10/17 23:00 Urine Appearance Clear (CLEAR) 02/10/17 23:00 Urine pH 6.0 (4.7-8.0) 02/10/17 23:00 Ur Specific Halls >= 1.030 (1.005-1.035) 02/10/17 23:00 Urine Protein 30 mg/dL (<30 mg/dL) H 02/10/17 23:00 Urine Glucose (UA) Negative mg/dL (NEGATIVE) 02/10/17 23:00 Urine Ketones Negative mg/dL (NEGATIVE) 02/10/17 23:00 Urine Blood Negative (NEGATIVE) 02/10/17 23:00 Urine Nitrate Negative (NEGATIVE) 02/10/17 23:00 Urine Bilirubin Negative (NEGATIVE) 02/10/17 23:00 Urine Urobilinogen 0.2 E.U./dL (<1 E.U./dL) 02/10/17 23:00 Ur Leukocyte Esterase Negative Hany/uL (NEGATIVE) 02/10/17 23:00 Urine RBC 0 - 2 /hpf (0-2) 02/10/17 23:00 Urine WBC 0 - 2 /hpf (0-6) 02/10/17 23:00 Ur Epithelial Cells 0 - 2 /hpf (0-5) 02/10/17 23:00 Calcium Oxalate Crystal Occ /hpf 02/10/17 23:00 Urine Bacteria Few (NEG) 02/10/17 23:00 Salicylates < 1 mg/dL (2.0-20.0) L 02/10/17 19:34 Urine Opiates Screen Positive (NEGATIVE) H 02/10/17 23:00 Urine Methadone Screen Negative (NEGATIVE) 02/10/17 23:00 Acetaminophen < 10.0 ug/ml (10.0-20.0) L 02/10/17 19:34 Ur Barbiturates Screen Negative (NEGATIVE) 02/10/17 23:00 Ur Phencyclidine Scrn Negative (NEGATIVE) 02/10/17 23:00 Ur Amphetamines Screen Negative (NEGATIVE) 02/10/17 23:00 U Benzodiazepines Scrn Positive (NEGATIVE) H 02/10/17 23:00 U Oth Cocaine Metabols Negative (NEGATIVE) 02/10/17 23:00 U Cannabinoids Screen Negative (NEGATIVE) 02/10/17 23:00 Alcohol, Quantitative < 10 mg/dL (0-10) 02/10/17 19:34 - Hospital Course Hospital Course: This is 56 year old female with PMH of migraines, COPD, DM type II, Anxiety, HTN , was brought to the ER for being found unresponsive 2 days prior. She was found by her brother and EMS was called who administered Narcan intranasally. In the hospital a Head CT was ordered for syncope/AMS which was negative. For cardiogenic causes, a EKG, chest xray, and troponin was done, which all came back negative. Due to her coffee ground emesis in the ED, GI was consulted. She never had an episode of hematemesis in the hospital and she was hemodynamically stable during her stay. She was advised to follow up for an outpatient EGD. Psych was consulted for her suspected overdose on opiates(pills). This is a brief account of her stay. For more details, please see her full report. - Date & Time of H&P Date of H&P: 02/13/17 Time of H&P: 10:15 Discharge Exam - Head Exam Head Exam: ATRAUMATIC, NORMOCEPHALIC - Eye Exam Eye Exam: Normal appearance - ENT Exam ENT Exam: Mucous Membranes Moist - Neck Exam Neck exam: Full Rom - Respiratory Exam Respiratory Exam: Clear to PA & Lateral, NORMAL BREATHING PATTERN, UNREMARKABLE. absent: Respiratory Distress - Cardiovascular Exam Cardiovascular Exam: REGULAR RHYTHM, RRR, +S1, +S2. absent: JVD - GI/Abdominal Exam GI & Abdominal Exam: Normal Bowel Sounds, Soft, Unremarkable. absent: Tenderness - Back Exam Back exam: FULL ROM. absent: CVA tenderness (L), CVA tenderness (R), paraspinal tenderness, rash noted - Neurological Exam Neurological exam: Alert, CN II-XII Intact, Normal Gait, Oriented x3, Reflexes Normal - Psychiatric Exam Psychiatric exam: Normal Affect, Normal Mood Discharge Plan - Follow Up Plan Condition: GUARDED Disposition: HOME/ ROUTINE Instructions: Gastrointestinal Bleeding (DC), Syncope (DC), Syncope (GEN), Altered Mental Status (GEN) Additional Instructions: Pt. medically stable to be discharged home. Please follow up with your primary care doctor, Dr. Sherry Yañez within 1 week to discuss your hospital admission and schedule a carotid ultrasound. Please follow up with Dr. Esqueda within 1 week to schedule outpatient EGD. Please stop smoking. Please take medications as directed. Please stop taking pain medications that are not prescribed from your doctor. Thank you for allowing us to take part in your care. Referrals: Leo Esqueda MD [Medical Doctor] - Danny Yañez MD [Primary Care Provider] - Jacob Wood MD [Staff Provider] - <Angelina Steele - Last Filed: 02/13/17 19:10> Provider - Provider Date of Admission: 02/11/17 05:12 Attending physician: Angelina Steele MD Primary care physician: Danny Yañez MD Hospital Course - Lab Results Lab Results: Most Recent Lab Values WBC 7.1 10^3/ul (4.5-11.0) 02/13/17 07:40 RBC 4.82 10^6/uL (3.5-6.1) 02/13/17 07:40 Hgb 14.9 gm/dL (12.0-16.0) 02/13/17 07:40 Hct 45.0 % (36.0-48.0) 02/13/17 07:40 MCV 93.4 fL (80.0-105.0) 02/13/17 07:40 MCH 30.9 pg (25.0-35.0) 02/13/17 07:40 MCHC 33.1 g/dl (31.0-37.0) 02/13/17 07:40 RDW 14.4 % (11.5-14.5) 02/13/17 07:40 Plt Count 232 10^3/uL (120.0-450.0) 02/13/17 07:40 MPV 9.7 fl (7.0-11.0) 02/13/17 07:40 Gran % 66.4 % (50.0-68.0) 02/13/17 07:40 Lymph % (Auto) 27.6 % (22.0-35.0) 02/13/17 07:40 [place] % (Auto) 5.8 % (1.0-6.0) 02/13/17 07:40 Eos % (Auto) 0.1 % (1.5-5.0) L 02/13/17 07:40 Baso % (Auto) 0.1 % (0.0-3.0) 02/13/17 07:40 Gran # 4.72 (1.4-6.5) 02/13/17 07:40 Lymph # 2.0 (1.2-3.4) 02/13/17 07:40 [place] # 0.4 (0.1-0.6) 02/13/17 07:40 Eos # 0.0 (0.0-0.7) 02/13/17 07:40 Baso # 0.01 K/mm3 (0.0-2.0) 02/13/17 07:40 Sodium 140 mmol/L (132-148) 02/13/17 07:40 Potassium 3.8 mmol/L (3.6-5.0) 02/13/17 07:40 Chloride 103 mmol/L (98-107) 02/13/17 07:40 Carbon Dioxide 28 mmol/L (21-33) 02/13/17 07:40 Anion Gap 13 (10-20) 02/13/17 07:40 BUN 8 mg/dL (7-21) 02/13/17 07:40 Creatinine 0.6 mg/dL (0.5-1.4) 02/13/17 07:40 Est GFR ( Amer) > 60 02/13/17 07:40 Est GFR (Non-Af Amer) > 60 02/13/17 07:40 POC Glucose (mg/dL) 211 mg/dL (65-110) H 02/10/17 19:32 Random Glucose 99 mg/dL (70-110) 02/13/17 07:40 Calcium 9.2 mg/dL (8.4-10.5) 02/13/17 07:40 Total Bilirubin 0.7 mg/dL (0.2-1.3) 02/13/17 07:40 AST 14 U/L (15-39) L 02/13/17 07:40 ALT 32 U/L (7-56) 02/13/17 07:40 Alkaline Phosphatase 85 U/L (38-133) 02/13/17 07:40 Lactate Dehydrogenase 392 U/L (333-699) 02/10/17 20:25 Total Creatine Kinase 158 U/L (35-230) 02/10/17 20:25 Troponin I 0.11 ng/mL 02/12/17 15:00 Total Protein 7.9 g/dL (5.8-8.3) 02/13/17 07:40 Albumin 3.5 g/dL (3.0-4.8) 02/13/17 07:40 Globulin 4.5 gm/dL 02/13/17 07:40 Albumin/Globulin Ratio 0.8 (1.1-1.8) L 02/13/17 07:40 Lipase 13 U/L (23-300) L 02/10/17 20:25 Urine Color Yellow (YELLOW) 02/10/17 23:00 Urine Appearance Clear (CLEAR) 02/10/17 23:00 Urine pH 6.0 (4.7-8.0) 02/10/17 23:00 Ur Specific Halls >= 1.030 (1.005-1.035) 02/10/17 23:00 Urine Protein 30 mg/dL (<30 mg/dL) H 02/10/17 23:00 Urine Glucose (UA) Negative mg/dL (NEGATIVE) 02/10/17 23:00 Urine Ketones Negative mg/dL (NEGATIVE) 02/10/17 23:00 Urine Blood Negative (NEGATIVE) 02/10/17 23:00 Urine Nitrate Negative (NEGATIVE) 02/10/17 23:00 Urine Bilirubin Negative (NEGATIVE) 02/10/17 23:00 Urine Urobilinogen 0.2 E.U./dL (<1 E.U./dL) 02/10/17 23:00 Ur Leukocyte Esterase Negative Hany/uL (NEGATIVE) 02/10/17 23:00 Urine RBC 0 - 2 /hpf (0-2) 02/10/17 23:00 Urine WBC 0 - 2 /hpf (0-6) 02/10/17 23:00 Ur Epithelial Cells 0 - 2 /hpf (0-5) 02/10/17 23:00 Calcium Oxalate Crystal Occ /hpf 02/10/17 23:00 Urine Bacteria Few (NEG) 02/10/17 23:00 Salicylates < 1 mg/dL (2.0-20.0) L 02/10/17 19:34 Urine Opiates Screen Positive (NEGATIVE) H 02/10/17 23:00 Urine Methadone Screen Negative (NEGATIVE) 02/10/17 23:00 Acetaminophen < 10.0 ug/ml (10.0-20.0) L 02/10/17 19:34 Ur Barbiturates Screen Negative (NEGATIVE) 02/10/17 23:00 Ur Phencyclidine Scrn Negative (NEGATIVE) 02/10/17 23:00 Ur Amphetamines Screen Negative (NEGATIVE) 02/10/17 23:00 U Benzodiazepines Scrn Positive (NEGATIVE) H 02/10/17 23:00 U Oth Cocaine Metabols Negative (NEGATIVE) 02/10/17 23:00 U Cannabinoids Screen Negative (NEGATIVE) 02/10/17 23:00 Alcohol, Quantitative < 10 mg/dL (0-10) 02/10/17 19:34 Attending/Attestation - Attestation I have personally seen and examined this patient.: Yes I have fully participated in the care of the patient.: Yes I have reviewed all pertinent clinical information, including history, physical exam and plan: Yes Notes (Text): I have seen and examined the patient at bedside with the resident. Agree with the discharge summary above with the following additions/ exceptions: Briefly this is 56 year old female with history of migraine headache, COPD, DM-2, anxiety, HTN, PUD, colonic polyps, renal stones s/p lithotripsy, RUL lung mass, restless leg syndrome who got admitted for evaluation of AMS/ unresponsiveness which was most likely due to opioids/ benzodiazepine over use as she woke up after narcan. Patient reported that as she was unable to sleep, she took extra xanax. She denies homicidal or suicidal ideation. In the ER, she had coffee ground emesis. Hemoglobin stable. Repeat labs are all within normal limits. Her vitals were stable. CT head did not show any acute changes. Carotid ultrasound pending however she does not want to wait for that test therefore recommended to have it as an outpatient. Last echo done in October was reviewed which was normal. Serial troponins were within normal limits. EKG revealed Sinus tachycardia however there was no acute ischemic changes. CXR normal. Patient reports that she does not take Insulin at home. hba1c ordered however result is pending at the time of dictation. She knows that she has a RUL lung mass and she is supposed to follow up in [place] for biopsy. She is on multiple psych medications. As per psychiatrist, patient can continue to take all psych medications at home. Tobacco cessation counselling provided. Upon discharge patient will follow up with Dr Prem Brady.
--- NOTE | 2017-02-14 09:16 | CON ---
DATE: 02/12/2017 HISTORY OF PRESENT ILLNESS: The patient is a 56-year-old white female with a history of dep ression and anxiety. No psychiatric hospitalizations and treatment with Dr. Ila Pozo in [facility]iant with medications Xanax, Seroquel, and amitriptyline. No prior history of suicide attempts who was brought to the ER after she was found unresponsive by her brother. Medical records show that anthony werner had accidentally taken extra Xanax because she could not sleep and had lost track of the amount of medications that she took. Psychiatry was called to follow up with patient on the medical floor prior to discharge to ensure stability. I met with patient at bedside and she is alert and oriented x 3 and she is quite cooperative with good focus and eye contact and thought process is coherent. Jag fang denies having any depression or excess anxiety symptoms and she reports that she is hopeful. She i s adamant that she did not take any of her medications prior to presentation in the ER as any sort of suicide attempt. She indicates that she is enjoying life and would like to be discharged and she do es not have any issues with her current psychiatric medications and plans to follow up with Dr. Pozo upon discharge. PSYCHIATRIC HISTORY: The patient denies any prior psychiatric hospitalizations. No history of suici de attempts. The patient Xanax 2 mg t.i.d., Seroquel as well as amitriptyline to help her slee p. SOCIAL HISTORY: The patient is . She lives with her brother and sometimes her 34-year-old daughter comes and lives with her. The patient also has a son and she has a grandson that is due to be in 06/2017, which she is very much looking forward to. IMPRESSION: Major depressive disorder by history, anxiety disorder by history. RECOMMENDATIONS: The patient appears sincere. She indicates the overdose on her medications prior t o admission was accidental. The patient does not have any major risk factors and her affect is quite congruent with her reported mood. Nonetheless, this provider did speak with her brother, Magdaleno, wit h the patient's permission and I called his cell at [phone] and brother, Magdaleno, also does not fe el that patient's overdose prior to admission was a suicide attempt at all. He denies that patient h as any history of suicide attempts and feels that she has been functioning well and really does feel that this issue with the patient was accidentally ingesting too many medications. He denies that megan goodman has been talking about suicide or excessive depressive symptoms prior to admission. He feels qu ite comfortable with her psychiatric clearance at this time and does not feel that she needs psychiat claire inpatient hospitalization. The patient herself defers on any psychiatric inpatient hospitalizati on and patient is psychiatrically cleared and can follow with Dr. Pozo at her current doses of medic ations as she is unwilling to change them at this time. Medical team should ensure that if the patie nt continues to be hospitalized, she should be continued at her current doses of her medications so s he does not go through Xanax withdrawal and suffer a seizure. Psychiatry will sign off at this time. Please reconsult p.r.n. Jacob Wood MD cc: [id number] TT: 02/12/2017 11:47:32 Confirmation # [id number] Dictation # [id number] naima
== END 2017-02-13 12:39 | disposition home or self-care (01) | DRG 918 ==
LOC: ED 19:25 → ERH 02-11 05:12 → 2RNO 02-11 08:45
PROVIDERS: ADMIT Internal Medicine Nephrology; ATTEND Hospitalist
DX: T40.601A Poisoning by unspecified narcotics, accidental (unintentional), initial encounter (principal); K92.0 Hematemesis; I10 Essential (primary) hypertension; E11.9 Type 2 diabetes mellitus without complications; F32.9 Major depressive disorder, single episode, unspecified; D64.9 Anemia, unspecified; T42.4X1A Poisoning by benzodiazepines, accidental (unintentional), initial encounter; J44.9 Chronic obstructive pulmonary disease, unspecified; R55 Syncope and collapse; R41.82 Altered mental status, unspecified; F41.9 Anxiety disorder, unspecified; G43.909 Migraine, unspecified, not intractable, without status migrainosus; G25.81 Restless legs syndrome; F17.200 Nicotine dependence, unspecified, uncomplicated; Z86.010 Personal history of colon polyps

== ENCOUNTER 2017-07-22 12:41 | Emergency (ER) | payer MEDICAID, MEDICARE, OTHER ==
[2017-07-22 12:43] VITALS: BMI 26.5
[2017-07-22 12:51] VITALS: TEMP 98.2
[2017-07-22] MEDS ORDERED: DiphenhydrAMINE 50 mg/ml Inj IVP STA (13:03)
[2017-07-22] MEDS ORDERED: Sodium Chloride 0.9% 1,000 ML IV STA (13:05)
--- NOTE | 2017-07-22 13:07 | ED PDOC ---
Arrival/HPI - General Chief Complaint: Headache Time Seen by Provider: 07/22/17 12:47 Historian: Patient - History of Present Illness Narrative History of Present Illness (Text): 07/22/17 13:07 A 57 year old female whose past medical history includes migraine headache, COPD , diabetes, anxiety, and hypertension, presets to the emergency department with 4 day duration migraine headache, vomiting, and nausea. The patient denies fevers, chills, dizziness, chest pain, shortness of breath, dyspnea on exertion , cough, abdominal pain, diarrhea, back pain, neck pain, urinary/bowel changes, or any other complaint. PMD: Dr. Brady Time/Duration: Other (4 days) Symptom Onset: Sudden Symptom Course: Unchanged Activities at Onset: Rest, Light Context: Home Past Medical History - Provider Review Nursing Documentation Reviewed: Yes - Past History Past History: Non-Contributing - Infectious Disease Hx of Infectious Diseases: None - Tetanus Immunization Tetanus Immunization: Unknown - Cardiac Hx Cardiac Disorders: Yes Hx Congestive Heart Failure: Yes Hx Hypertension: Yes Hx Peripheral Edema: Yes Hx Peripheral Vascular Disease: (VARICOSITIES WITH VEIN STRIPPING) - Pulmonary Hx Respiratory Disorders: Yes Hx Asthma: Yes Hx Bronchitis: Yes Hx Chronic Obstructive Pulmonary Disease (COPD): Yes Hx Pneumonia: Yes - Neurological Hx Neurological Disorder: Yes (NEAR SYNCOPE) Hx Dizziness: Yes Hx Migraine: Yes - HEENT Hx HEENT Disorder: Yes Hx Glaucoma: Yes - Renal Hx Renal Disorder: Yes Hx Kidney Stones: Yes (WITH SX X2 AND LITHOTRYPSY) - Endocrine/Metabolic Hx Endocrine Disorders: Yes Hx Diabetes Mellitus Type 1: Yes - Hematological/Oncological Hx Blood Disorders: Yes Hx Anemia: Yes - Integumentary Hx Dermatological Disorder: No - Musculoskeletal/Rheumatological Hx Falls: No - Gastrointestinal Hx Gastrointestinal Disorders: Yes Hx Gastroesophageal Reflux: Yes - Genitourinary/Gynecological Hx Genitourinary Disorders: Yes (CEASEREAN SECTION X 2) Hx Urinary Tract Infection: Yes - Psychiatric Hx Psychophysiologic Disorder: Yes Hx Anxiety: Yes Hx Depression: Yes Hx Substance Use: No - Past Surgical History Past Surgical History: No Previous - Surgical History Hx Cardiac Catheterization: Yes Hx Section: Yes Other/Comment: Veins on BLE surgery - Anesthesia Hx Anesthesia: Yes Hx Anesthesia Reactions: No Hx Malignant Hyperthermia: No - Suicidal Assessment Feels Threatened In Home Enviroment: No Family/Social History - Physician Review Nursing Documentation Reviewed: Yes Family/Social History: No Known Family HX Smoking Status: Heavy Smoker > 10 Cigarettes Daily Hx Alcohol Use: No Hx Substance Use: No Hx Substance Use Treatment: No Allergies/Home Meds Allergies/Adverse Reactions: Allergies amoxicillin Allergy (Verified 11/17/15 09:46) VOMITING naproxen [From Naprosyn] Allergy (Verified 11/17/15 09:46) VOMITING doxycycline calcium [From Vibramycin] Adverse Reaction (Verified 11/17/15 09:46) VOMITING doxycycline hyclate [From Vibramycin] Adverse Reaction (Verified 11/17/15 09:46) VOMITING doxycycline monohydrate [From Vibramycin] Adverse Reaction (Verified 11/17/15 09 :46) VOMITING Home Medications: Home Meds Medication Instructions Recorded Confirmed Insulin Detemir [Levemir] 20 unit SC HS PRN 08/12/13 07/22/17 Escitalopram [Lexapro] 20 mg PO DAILY 12/28/14 07/22/17 Alprazolam [Xanax] 2 mg PO BID PRN 02/12/17 07/22/17 Amitriptyline [Elavil] 50 mg PO HS PRN 02/12/17 07/22/17 Quetiapine Fumarate [Seroquel] 100 mg PO TID 02/12/17 07/22/17 rOPINIRole [Requip] 1 mg PO HS 02/12/17 07/22/17 Acetaminophen/Butalbital/Caf 1 tab PO Q6 PRN 07/22/17 07/22/17 [Fioricet] Review of Systems - Physician Review All systems were reviewed & negative as marked: Yes - Review of Systems Constitutional: absent: Fevers, Night Sweats ENT: absent: Sore Throat Respiratory: absent: SOB, Cough Cardiovascular: absent: Chest Pain, KRAMER Gastrointestinal: Nausea, Vomiting. absent: Abdominal Pain, Stool Changes, Diarrhea Genitourinary Female: absent: Urine Output Changes Musculoskeletal: absent: Back Pain, Neck Pain Neurological: Headache. absent: Dizziness Physical Exam Vital Signs Reviewed: Yes Vital Signs Temp Pulse Resp BP Pulse Ox 07/22/17 14:13 84 16 100/82 92 L 07/22/17 12:48 98.2 F 78 18 93/62 L 90 L Temperature: Afebrile Blood Pressure: Hypertensive Pulse: Regular Respiratory Rate: Normal Appearance: Positive for: Well-Appearing, Non-Toxic, Comfortable Pain Distress: None Mental Status: Positive for: Alert and Oriented X 3 - Systems Exam Head: Present: Atraumatic, Normocephalic Pupils: Present: PERRL Extroacular Muscles: Present: EOMI Conjunctiva: Present: Normal Mouth: Present: Moist Mucous Membranes Neck: Present: Normal Range of Motion Respiratory/Chest: Present: Clear to Auscultation, Good Air Exchange. No: Respiratory Distress, Accessory Muscle Use Cardiovascular: Present: Regular Rate and Rhythm, Normal S1, S2. No: Murmurs Abdomen: Present: Normal Bowel Sounds. No: Tenderness, Distention, Peritoneal Signs Back: Present: Normal Inspection Upper Extremity: Present: Normal Inspection. No: Cyanosis, Edema Lower Extremity: Present: Normal Inspection. No: Edema Neurological: Present: GCS=15, CN II-XII Intact, Speech Normal Skin: Present: Warm, Dry, Normal Color. No: Rashes Psychiatric: Present: Alert, Oriented x 3, Normal Insight, Normal Concentration Medical Decision Making ED Course and Treatment: 07/22/17 13:16 Impression: A 57 year old female presents to the emergency department with migraine headache , nausea, and vomiting. Plan: -- Labs -- Benadryl, Reglan, and IV Fluids -- Reassess and disposition Prior Visits: Notes and results from previous visits were reviewed. Patient was last seen in the emergency department on 02/10/2017, the patient was treated for a GI bleed. The patient was hospitalized. Progress Notes: 07/22/17 14:33: Patient states that she feels better. The patient asked for d/c. - Lab Interpretations Lab Results: 07/22/17 13:30 07/22/17 13:30 Lab Results 07/22/17 13:30: Sodium 139, Potassium 4.4, Chloride 101, Carbon Dioxide 30, Anion Gap 12, BUN 12, Creatinine 0.8, Est GFR ( Amer) > 60, Est GFR (Non- Af Amer) > 60, Random Glucose 126 H, Calcium 8.6, Total Bilirubin 0.4, AST 13 L , ALT 26, Alkaline Phosphatase 82, Total Protein 7.3, Albumin 3.6, Globulin 3.7 , Albumin/Globulin Ratio 1.0 L 07/22/17 13:30: PT 11.5, INR 1.05, APTT 31.6 07/22/17 13:30: WBC 10.7 D, RBC 4.68, Hgb 14.7, Hct 45.3, MCV 96.8, MCH 31.4, MCHC 32.5, RDW 15.5 H, Plt Count 210, MPV 10.2, Gran % 66.1, Lymph % (Auto) 25.6 , [place] % (Auto) 5.0, Eos % (Auto) 3.1, Baso % (Auto) 0.2, Gran # 7.07 H, Lymph # 2.7, [place] # 0.5, Eos # 0.3, Baso # 0.02 I have reviewed the lab results: Yes - Medication Orders Current Medication Orders: Discontinued Medications Diphenhydramine HCl (Benadryl) 25 mg IVP STAT STA Stop: 07/22/17 13:04 Last Admin: 07/22/17 13:31 Dose: 25 mg IVP Administration Document 07/22/17 13:31 CA (Rec: 07/22/17 13:31 [id number] Charges for Administration # of IVP Administrations 1 Sodium Chloride (Sodium Chloride 0.9%) 1,000 mls @ 999 mls/hr IV .Q1H1M STA Stop: 07/22/17 14:05 Last Admin: 07/22/17 13:31 Dose: 999 mls/hr eMAR Start Stop Document 07/22/17 13:31 HI (Rec: 07/22/17 13:31 CA [id number]) Intravenous Solution Start Date 07/22/17 Start Time 13:31 Metoclopramide HCl (Reglan) 10 mg IVP STAT STA Stop: 07/22/17 13:04 Last Admin: 07/22/17 13:31 Dose: 10 mg IVP Administration Document 07/22/17 13:31 CA (Rec: 07/22/17 13:31 [id number] Charges for Administration # of IVP Administrations 1 - Scribe Statement The provider has reviewed the documentation as recorded by the Scribe Eva Dexter Provider Scribe Attestation: All medical record entries made by the Scribe were at my direction and personally dictated by me. I have reviewed the chart and agree that the record accurately reflects my personal performance of the history, physical exam, medical decision making, and the department course for this patient. I have also personally directed, reviewed, and agree with the discharge instructions and disposition. Disposition/Present on Arrival - Present on Arrival Any Indicators Present on Arrival: No History of DVT/PE: No History of Uncontrolled Diabetes: No Urinary Catheter: Yes (inserted in ed) History of Decub. Ulcer: No History Surgical Site Infection Following: None - Disposition Have Diagnosis and Disposition been Completed?: Yes Diagnosis: Headache Disposition: HOME/ ROUTINE Disposition Time: 02:00 Condition: STABLE Discharge Instructions (ExitCare): Acute Headache (ED) Additional Instructions: please follow up with your doctor. return to er with worsening symptoms Referrals: Fanny Steele MD [Staff Provider] - Follow up with primary Forms: [employer] ([place])
[2017-07-22 13:51] LABS: BASO # 0.02 K/mm3 (0.0-2.0); BASO % 0.2 % (0.0-3.0); EOS # 0.3 (0.0-0.7); EOS % 3.1 % (1.5-5.0); GRAN # 7.07 (1.4-6.5); GRAN % 66.1 % (50.0-68.0); HEMATOCRIT 45.3 % (36.0-48.0); LYMPH # 2.7 (1.2-3.4); LYMPH % 25.6 % (22.0-35.0); MEAN CELL VOLUME 96.8 fl (80.0-105.0); MEAN CORPUSCULAR HEMOGLOBIN 31.4 pg (25.0-35.0); MEAN CORPUSCULAR HGB CONC 32.5 g/dl (31.0-37.0); MEAN PLATELET VOLUME 10.2 fl (7.0-11.0); MONO # 0.5 (0.1-0.6); RED CELL DISTRIBUTION WIDTH 15.5 % (11.5-14.5); WHITE BLOOD COUNT 10.7 10^3/ul (4.5-11.0)
[2017-07-22 14:00] LABS: ALKALINE PHOSPHATASE 82 U/L (38-126); ALT/SGPT 26 U/L (7-56); AST/SGOT 13 U/L (14-36); BILIRUBIN,TOTAL 0.4 mg/dL (0.2-1.3); BLOOD UREA NITROGEN 12 mg/dL (7-21); CALCIUM 8.6 mg/dL (8.4-10.5); CARBON DIOXIDE 30 mmol/L (21-33); CHLORIDE 101 mmol/L (98-107); GFR AFRICAN-AMERICAN > 60; GLUCOSE,RANDOM 126 mg/dL (70-110); POTASSIUM 4.4 mmol/L (3.6-5.0); SODIUM 139 mmol/L (132-148); TOTAL PROTEIN 7.3 g/dL (5.8-8.3)
[2017-07-22 14:07] LABS: INR 1.05 (0.93-1.08); PARTIAL THROMBOPLASTIN TIME 31.6 Seconds (25.1-36.5)
[2017-07-22 14:24] VITALS: BP 100/82; PULSE 84; RESP 16; O2SAT 92
== END 2017-07-22 14:23 | disposition home or self-care (01) ==
LOC: ED 12:41
DX: R51 Headache (principal); I10 Essential (primary) hypertension; E11.9 Type 2 diabetes mellitus without complications; F17.210 Nicotine dependence, cigarettes, uncomplicated
CPT/HCPCS: 80053; 85025; 85610; 85730; 96374; 96375; 99285; J1200; J2765; J7040

== ENCOUNTER 2017-12-14 14:33 | Emergency (ER) | payer MEDICARE ==
[2017-12-14 14:33] VITALS: BMI 26.5
--- NOTE | 2017-12-14 15:07 | ED PDOC ---
Arrival/HPI - General Chief Complaint: Headache Time Seen by Provider: 12/14/17 15:01 Historian: Patient - History of Present Illness Narrative History of Present Illness (Text): 12/14/17 15:03 A 57 year old female whose past medical history includes migraine headache, COPD , diabetes, anxiety, and hypertension, presents to the emergency department with cough, chills, generalized weakness x 3 weeks. Patient also stated a 1 day duration migraine headache. Patient denies cp, wheezing, urinary symptoms, vaginal discharge, skin rash, dizziness, or abnormal gait. Time/Duration: Other (see hpi) Context: Home Past Medical History - Provider Review Nursing Documentation Reviewed: Yes - Past History Past History: Non-Contributing - Infectious Disease Hx of Infectious Diseases: None - Tetanus Immunization Tetanus Immunization: Unknown - Reproductive Menopause: Yes - Cardiac Hx Cardiac Disorders: Yes Hx Congestive Heart Failure: Yes Hx Hypertension: Yes Hx Peripheral Edema: Yes Hx Peripheral Vascular Disease: (VARICOSITIES WITH VEIN STRIPPING) - Pulmonary Hx Respiratory Disorders: Yes Hx Asthma: Yes Hx Bronchitis: Yes Hx Chronic Obstructive Pulmonary Disease (COPD): Yes Hx Pneumonia: Yes - Neurological Hx Neurological Disorder: Yes (NEAR SYNCOPE) Hx Dizziness: Yes Hx Migraine: Yes - HEENT Hx HEENT Disorder: Yes Hx Glaucoma: Yes - Renal Hx Renal Disorder: Yes Hx Kidney Stones: Yes (WITH SX X2 AND LITHOTRYPSY) - Endocrine/Metabolic Hx Endocrine Disorders: Yes Hx Diabetes Mellitus Type 1: Yes - Hematological/Oncological Hx Blood Disorders: Yes Hx Anemia: Yes - Integumentary Hx Dermatological Disorder: No - Musculoskeletal/Rheumatological Hx Falls: No - Gastrointestinal Hx Gastrointestinal Disorders: Yes Hx Gastroesophageal Reflux: Yes - Genitourinary/Gynecological Hx Genitourinary Disorders: Yes (CEASEREAN SECTION X 2) Hx Urinary Tract Infection: Yes - Psychiatric Hx Psychophysiologic Disorder: Yes Hx Anxiety: Yes Hx Depression: Yes Hx Substance Use: No - Past Surgical History Past Surgical History: No Previous - Surgical History Hx Cardiac Catheterization: Yes Hx Section: Yes Other/Comment: Veins on BLE surgery - Anesthesia Hx Anesthesia: Yes Hx Anesthesia Reactions: No Hx Malignant Hyperthermia: No - Suicidal Assessment Feels Threatened In Home Enviroment: No Family/Social History - Physician Review Nursing Documentation Reviewed: Yes Family/Social History: Other (noncontributory) Smoking Status: Heavy Smoker > 10 Cigarettes Daily Hx Alcohol Use: No Hx Substance Use: No Hx Substance Use Treatment: No Allergies/Home Meds Allergies/Adverse Reactions: Allergies amoxicillin Allergy (Verified 12/14/17 14:48) VOMITING naproxen [From Naprosyn] Allergy (Verified 12/14/17 14:48) VOMITING doxycycline calcium [From Vibramycin] Adverse Reaction (Verified 12/14/17 14:48) VOMITING doxycycline hyclate [From Vibramycin] Adverse Reaction (Verified 12/14/17 14:48) VOMITING doxycycline monohydrate [From Vibramycin] Adverse Reaction (Verified 12/14/17 14 :48) VOMITING Home Medications: Home Meds Medication Instructions Recorded Confirmed Insulin Detemir [Levemir] 20 unit SC DAILY 08/12/13 12/14/17 Escitalopram [Lexapro] 20 mg PO DAILY 12/28/14 12/14/17 Alprazolam [Xanax] 2 mg PO TID 02/12/17 12/14/17 Amitriptyline [Elavil] 50 mg PO HS PRN 02/12/17 12/14/17 Quetiapine Fumarate [Seroquel] 100 mg PO TID 02/12/17 12/14/17 rOPINIRole [Requip] 1 mg PO HS 02/12/17 12/14/17 Acetaminophen/Butalbital/Caf 1 tab PO Q6 PRN 07/22/17 12/14/17 [Fioricet] Review of Systems - Review of Systems Constitutional: Normal. absent: Fatigue, Weight Change, Fevers Eyes: Normal ENT: Normal. absent: Sore Throat Respiratory: Cough. absent: SOB, Sputum, Wheezing Cardiovascular: Normal. absent: Chest Pain, Palpitations Gastrointestinal: absent: Abdominal Pain, Nausea, Vomiting Genitourinary Female: Normal. absent: Dysuria, Frequency, Hematuria Musculoskeletal: Myalgias Skin: Normal. absent: Rash Neurological: Headache. absent: Dizziness, Focal Weakness, Gait Changes, Speech Changes, Facial Droop, Disequilibrium, Seizure Endocrine: Normal Hemo/Lymphatic: Normal Psychiatric: Normal Physical Exam Vital Signs Temp Pulse Resp BP Pulse Ox 12/14/17 18:15 98.4 F 72 16 118/70 98 12/14/17 14:43 98.9 F 88 20 121/76 97 Temperature: Afebrile Blood Pressure: Normal Pulse: Regular Respiratory Rate: Normal Appearance: Positive for: Well-Appearing, Non-Toxic, Comfortable Pain Distress: None Mental Status: Positive for: Alert and Oriented X 3 - Systems Exam Head: Present: Atraumatic, Normocephalic Pupils: Present: PERRL Extroacular Muscles: Present: EOMI Conjunctiva: Present: Normal Mouth: Present: Moist Mucous Membranes Neck: Present: Normal Range of Motion Respiratory/Chest: Present: Clear to Auscultation, Good Air Exchange. No: Respiratory Distress, Accessory Muscle Use Cardiovascular: Present: Regular Rate and Rhythm, Normal S1, S2. No: Murmurs Abdomen: Present: Normal Bowel Sounds. No: Tenderness, Distention, Peritoneal Signs Back: Present: Normal Inspection. No: CVA Tenderness Upper Extremity: Present: Normal Inspection. No: Cyanosis, Edema Lower Extremity: Present: Normal Inspection. No: Edema Neurological: Present: GCS=15, CN II-XII Intact, Speech Normal, Motor Func Grossly Intact, Normal Sensory Function, Normal Cerebellar Funct, Gait Normal Skin: Present: Warm, Dry, Normal Color. No: Rashes Psychiatric: Present: Alert, Oriented x 3, Normal Insight, Normal Concentration Medical Decision Making ED Course and Treatment: 12/14/17 17:41 Re-evaluation. Patient feels better. Discussed results and plan with patient who expresses understanding. All questions answered and there is agreement with the plan to discharge home with instructions. Patient stable for discharge. Return if symptoms persist or worsen. Patient stated she feels better, and she wishes to be discharged home. Patient request Nexium refill. Patient also requested Reglan for BRISCOE and nausea PRN. I told patient regarding risk of using Reglan (Tardive dyskinesia ), and Nexium including kidney disease. Patient understood risk and she still agrees with these medication. Re-evaluation Time: 17:44 Reassessment Condition: Re-examined, Improved - Lab Interpretations Lab Results: 12/14/17 15:30 12/14/17 15:30 Lab Results 12/14/17 16:48: Urine Color Yellow, Urine Appearance Turbid, Urine pH 6.0, Ur Specific [place] 1.020, Urine Protein Trace H, Urine Glucose (UA) Negative, Urine Ketones Negative, Urine Blood Trace-intact H, Urine Nitrate Positive H, Urine Bilirubin Negative, Urine Urobilinogen 0.2, Ur Leukocyte Esterase Moderate H, Urine RBC 1 - 3, Urine WBC 25 - 30, Ur Epithelial Cells 3 - 4, Urine Bacteria Many 12/14/17 15:30: Sodium 143, Potassium 4.4, Chloride 106, Carbon Dioxide 24, Anion Gap 17, BUN 13, Creatinine 0.9, Est GFR ( Amer) > 60, Est GFR (Non- Af Amer) > 60, Random Glucose 104, Calcium 10.1, Total Bilirubin 0.3, AST 16, ALT 15, Alkaline Phosphatase 81, Total Protein 9.0 H, Albumin 4.2, Globulin 4.8 , Albumin/Globulin Ratio 0.9 L 12/14/17 15:30: WBC 9.5, RBC 5.60, Hgb 17.9 H D, Hct 53.2 H, MCV 95.0, MCH 32.0 , MCHC 33.6, RDW 14.8 H, Plt Count 239, MPV 10.8, Gran % 62.8, Lymph % (Auto) 31.5, [place] % (Auto) 4.0, Eos % (Auto) 1.3 L, Baso % (Auto) 0.4, Gran # 5.98, Lymph # (Auto) 3.0, [place] # (Auto) 0.4, Eos # (Auto) 0.1, Baso # (Auto) 0.04 12/14/17 14:58: POC Glucose (mg/dL) 108 I have reviewed the lab results: Yes Interpretation: Abnormal lab values (acute cystitis) - Medication Orders Current Medication Orders: Discontinued Medications Diphenhydramine HCl (Benadryl) 25 mg IVP STAT STA Stop: 12/14/17 15:11 Last Admin: 12/14/17 15:39 Dose: 25 mg IVP Administration Document 12/14/17 15:[place] [facility] [place]: 12[place]14[place]17 15[place] [facility] [id number] Charges for Administration # of IVP Administrations 1 Sodium Chloride (Sodium Chloride 0.9%) 1,000 mls @ 999 mls/hr IV .Q1H1M STA Stop: 12/14/17 16:10 Last Admin: 12/14/17 15:38 Dose: 999 mls/hr eMAR Start Stop Document 12/14/17 15:38 [facility] [place]Rec: 12/14/17 15:38 [facility] [id number][place] Intravenous Solution Start Date 12/14/17 Start Time 15:38 End Date 12/14/17 End time 16:40 Total Infusion Time 62 Metoclopramide HCl (Reglan) 10 mg IVP STAT STA Stop: 12/14/17 15:11 Last Admin: 12/14/17 15:38 Dose: 10 mg IVP Administration Document 12/14/17 15:38 [facility] [place]Rec: 12/14/17 15:39 [facility] [id number]) Charges for Administration # of IVP Administrations 1 Nitrofurantoin Macrocrystals (Macrobid) 100 mg PO STAT STA PRN Reason: Protocol Stop: 12/14/17 17:39 Last Admin: 12/14/17 18:05 Dose: 100 mg Disposition/Present on Arrival - Present on Arrival Any Indicators Present on Arrival: No History of DVT/PE: No History of Uncontrolled Diabetes: No Urinary Catheter: Yes (inserted in ed) History of Decub. Ulcer: No History Surgical Site Infection Following: None - Disposition Have Diagnosis and Disposition been Completed?: Yes Diagnosis: Acute cystitis, Headache Disposition: HOME/ ROUTINE Disposition Time: 17:45 Patient Plan: Discharge Condition: GOOD Discharge Instructions (ExitCare): Headache, Adult, Acute Cystitis (DC) Additional Instructions: Call [facility] office for follow up visit in 1-2 days. Take medication with food. Return to emergency if symptoms worsen, fever, or flank abdominal pain. Review urine culture result with your doctor in 2-3 days Prescriptions: Esomeprazole Magnesium [Nexium] 40 mg PO DAILY #10 capsule. Metoclopramide HCl [Reglan] 10 mg PO DAILY PRN #5 tablet PRN Reason: Headache Nitrofurantoin Macrocrystals [Macrobid] 100 mg PO BID #14 cap Referrals: [facility] Card, [Non-Staff] - Follow up with primary Prem Brady MD [Staff Provider] - Follow up with primary Forms: [employer] (Kazakh)
[2017-12-14] MEDS: Sodium Chloride 0.9% 1,000 ML IV STA (15:38)
[2017-12-14] MEDS: DiphenhydrAMINE 50 mg/ml Inj IVP STA (15:39)
[2017-12-14 15:55] LABS: ALB/GLOB RATIO 0.9 (1.1-1.8); ALBUMIN 4.2 g/dL (3.0-4.8); ALT/SGPT 15 U/L (7-56); AST/SGOT 16 U/L (14-36); BLOOD UREA NITROGEN 13 mg/dL (7-21); CALCIUM 10.1 mg/dL (8.4-10.5); GFR AFRICAN-AMERICAN > 60; GFR NON-AFRICAN AMERICAN > 60
[2017-12-14 16:19] LABS: BASO # 0.04 K/mm3 (0.0-2.0); BASO % 0.4 % (0.0-3.0); EOS # 0.1 (0.0-0.7); EOS % 1.3 % (1.5-5.0); GRAN # 5.98 (1.4-6.5); GRAN % 62.8 % (50.0-68.0); LYMPH % 31.5 % (22.0-35.0); MEAN CORPUSCULAR HGB CONC 33.6 g/dl (31.0-37.0); MEAN PLATELET VOLUME 10.8 fl (7.0-11.0); MONO # 0.4 (0.1-0.6); RBC 5.6 10^6/uL (3.5-6.1); RED CELL DISTRIBUTION WIDTH 14.8 % (11.5-14.5); WHITE BLOOD COUNT 9.5 10^3/ul (4.5-11.0)
[2017-12-14 16:28] LABS: HEMOGLOBIN 17.9 g/dL (12.0-16.0)
[2017-12-14 17:05] LABS: URINE BILIRUBIN NEGATIVE (NEGATIVE); URINE BLOOD TRACE-INTACT (NEGATIVE); URINE GLUCOSE (UA) NEGATIVE (NEGATIVE); URINE LEUKOCYTE ESTERASE MODERATE Leu/uL (NEGATIVE); URINE PROTEIN TRACE mg/dL (<30 mg/dL); URINE UROBILINOGEN 0.2 E.U./dL (<1 E.U./dL)
[2017-12-14 17:06] LABS: URINE APPEARANCE TURBID (CLEAR); URINE COLOR YELLOW (YELLOW)
[2017-12-14 17:19] LABS: URINE WBC 25 - 30 /hpf (0-6)
[2017-12-14 17:20] LABS: URINE BACTERIA MANY (NEG)
[2017-12-14 18:16] VITALS: BP 118/70; PULSE 72; RESP 16; TEMP 98.4; O2SAT 98
== END 2017-12-14 18:17 | disposition home or self-care (01) ==
LOC: ED 14:33
DX: N30.00 Acute cystitis without hematuria (principal); R51 Headache; I10 Essential (primary) hypertension; E11.9 Type 2 diabetes mellitus without complications; F17.210 Nicotine dependence, cigarettes, uncomplicated
CPT/HCPCS: 80053; 81001; 82948; 85025; 87086; 87181; 96361; 96374; 96375; 99285; J1200; J2765; J7040

== ENCOUNTER 2017-12-20 12:19 | Emergency (ER) | payer MEDICARE ==
[2017-12-20 12:20] VITALS: BMI 26.5
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
[2017-12-20 13:09] LABS: EOS # 0.1 (0.0-0.7); EOS % 0.7 % (1.5-5.0); GRAN # 6.78 (1.4-6.5); GRAN % 81.3 % (50.0-68.0); LYMPH # 1.2 (1.2-3.4); LYMPH % 13.9 % (22.0-35.0); MEAN CELL VOLUME 95.5 fl (80.0-105.0); MEAN CORPUSCULAR HEMOGLOBIN 32.1 pg (25.0-35.0); MEAN CORPUSCULAR HGB CONC 33.7 g/dl (31.0-37.0); MEAN PLATELET VOLUME 10.3 fl (7.0-11.0); MONO # 0.3 (0.1-0.6); MONO % 4.1 % (1.0-6.0); RBC 5.29 10^6/uL (3.5-6.1); RED CELL DISTRIBUTION WIDTH 14.6 % (11.5-14.5); WHITE BLOOD COUNT 8.3 10^3/ul (4.5-11.0)
[2017-12-20 13:14] LABS: PHENCYCLIDINE, UR NEGATIVE (NEGATIVE)
[2017-12-20 13:15] LABS: BARBITURATES, UR NEGATIVE (NEGATIVE); BENZODIAZEPINES, UR POSITIVE (NEGATIVE); OPIATES, UR POSITIVE (NEGATIVE)
[2017-12-20 13:22] LABS: ALB/GLOB RATIO 0.9 (1.1-1.8); ALBUMIN 4.1 g/dL (3.0-4.8); ALT/SGPT 17 U/L (7-56); AST/SGOT 15 U/L (14-36); BLOOD UREA NITROGEN 15 mg/dL (7-21); CALCIUM 9.5 mg/dL (8.4-10.5); GFR AFRICAN-AMERICAN > 60; GFR NON-AFRICAN AMERICAN > 60
[2017-12-20] MEDS ORDERED: Sodium Chloride 0.9% 500 ML IV STA (15:46)
[2017-12-20 16:37] VITALS: BP 120/46; PULSE 103; RESP 18; O2SAT 98
[2017-12-20 16:58] VITALS: TEMP 98.2
--- NOTE | 2017-12-21 11:37 | CARD ---
APPROVED REPORT EKG Measurement Heart [id number] <Conclusion> Sinus tachycardia Rightward axis Borderline ECG
== END 2017-12-20 17:00 | disposition home or self-care (01) ==
LOC: ED 12:19
DX: F11.10 Opioid abuse, uncomplicated (principal); R91.8 Other nonspecific abnormal finding of lung field; F17.210 Nicotine dependence, cigarettes, uncomplicated; E10.9 Type 1 diabetes mellitus without complications
CPT/HCPCS: 80053; 82948; 85025; 93005; 99283; G0480; J7040

== ENCOUNTER 2018-01-04 13:02 | Emergency (ER) | payer MEDICARE ==
[2018-01-04 13:31] VITALS: RESP 18; O2SAT 95
[2018-01-04 13:34] VITALS: BMI 27.6
[2018-01-04] MEDS ORDERED: DiphenhydrAMINE 50 mg/ml Inj IVP STA (13:54)
[2018-01-04] MEDS ORDERED: Sodium Chloride 0.9% 1,000 ML IV SCH (14:00)
--- NOTE | 2018-01-04 14:07 | ED PDOC ---
Arrival/HPI - General Chief Complaint: GI Problem Time Seen by Provider: 01/04/18 13:31 Historian: Patient - History of Present Illness Narrative History of Present Illness (Text): 01/04/18 13:49 A 57 year old female, whose past medical history includes CHF, hypertension, peripheral edema, kidney stones, and UTI, presents to the emergency department complaining of migraine and abdominal pain. Patient reports migraine to forehead began 2 days ago which has gradually worsened. Afterwards began experiencing left-side abdominal that radiates to back, and has been vomiting. Notes taking Tylenol but has had no relief of symptoms. Also, patient mentions experiencing urinary frequency. Patient denies any other complaints at this time. PMD: Dr. Yañez and Dr. Morris Time/Duration: < week (2 days) Symptom Onset: Gradual Symptom Course: Unchanged Past Medical History - Provider Review Nursing Documentation Reviewed: Yes - Past History Past History: Non-Contributing - Infectious Disease Hx of Infectious Diseases: None - Tetanus Immunization Tetanus Immunization: Unknown - Cardiac Hx Cardiac Disorders: Yes Hx Congestive Heart Failure: Yes Hx Hypertension: Yes Hx Peripheral Edema: Yes Hx Peripheral Vascular Disease: (VARICOSITIES WITH VEIN STRIPPING) - Pulmonary Hx Respiratory Disorders: Yes Hx Asthma: Yes Hx Bronchitis: Yes Hx Chronic Obstructive Pulmonary Disease (COPD): Yes Hx Pneumonia: Yes - Neurological Hx Neurological Disorder: Yes (NEAR SYNCOPE) Hx Dizziness: Yes Hx Migraine: Yes - HEENT Hx HEENT Disorder: Yes Hx Glaucoma: Yes - Renal Hx Renal Disorder: Yes Hx Kidney Stones: Yes (WITH SX X2 AND LITHOTRYPSY) - Endocrine/Metabolic Hx Endocrine Disorders: Yes Hx Diabetes Mellitus Type 1: Yes - Hematological/Oncological Hx Blood Disorders: Yes Hx Anemia: Yes - Integumentary Hx Dermatological Disorder: No - Musculoskeletal/Rheumatological Hx Falls: No - Gastrointestinal Hx Gastrointestinal Disorders: Yes Hx Gastroesophageal Reflux: Yes - Genitourinary/Gynecological Hx Genitourinary Disorders: Yes (CEASEREAN SECTION X 2) Hx Urinary Tract Infection: Yes - Psychiatric Hx Psychophysiologic Disorder: Yes Hx Anxiety: Yes Hx Depression: Yes Hx Substance Use: No - Past Surgical History Past Surgical History: No Previous - Surgical History Hx Cardiac Catheterization: Yes Hx Section: Yes Other/Comment: Veins on BLE surgery - Anesthesia Hx Anesthesia: Yes Hx Anesthesia Reactions: No Hx Malignant Hyperthermia: No - Suicidal Assessment Feels Threatened In Home Enviroment: No Family/Social History - Physician Review Nursing Documentation Reviewed: Yes Family/Social History: No Known Family HX Smoking Status: Heavy Smoker > 10 Cigarettes Daily Hx Alcohol Use: No Hx Substance Use: No Hx Substance Use Treatment: No Allergies/Home Meds Allergies/Adverse Reactions: Allergies amoxicillin Allergy (Verified 12/14/17 14:48) VOMITING naproxen [From Naprosyn] Allergy (Verified 12/14/17 14:48) VOMITING doxycycline calcium [From Vibramycin] Adverse Reaction (Verified 12/14/17 14:48) VOMITING doxycycline hyclate [From Vibramycin] Adverse Reaction (Verified 12/14/17 14:48) VOMITING doxycycline monohydrate [From Vibramycin] Adverse Reaction (Verified 12/14/17 14 :48) VOMITING Home Medications: Home Meds Medication Instructions Recorded Confirmed Escitalopram [Lexapro] 20 mg PO DAILY 12/28/14 01/04/18 Alprazolam [Xanax] 2 mg PO TID 02/12/17 01/04/18 Amitriptyline [Elavil] 50 mg PO HS PRN 02/12/17 01/04/18 Esomeprazole Magnesium [Nexium] 40 mg PO DAILY 01/04/18 01/04/18 Review of Systems - Physician Review All systems were reviewed & negative as marked: Yes - Review of Systems Gastrointestinal: Abdominal Pain (left-side abdominal pain radiating to back), Vomiting Genitourinary Female: Frequency Neurological: Headache (migraine) Physical Exam Vital Signs Reviewed: Yes Vital Signs Temp Pulse Resp BP Pulse Ox 01/04/18 15:04 98 F 79 18 121/60 95 01/04/18 13:04 98.2 F 77 18 116/60 95 Temperature: Afebrile Blood Pressure: Normal Pulse: Regular Respiratory Rate: Normal Appearance: Positive for: Well-Appearing Pain Distress: None Mental Status: Positive for: Alert and Oriented X 3 - Systems Exam Respiratory/Chest: Present: Clear to Auscultation, Good Air Exchange. No: Respiratory Distress, Accessory Muscle Use Cardiovascular: Present: Regular Rate and Rhythm, Normal S1, S2. No: Murmurs Abdomen: Present: Tenderness (LUQ), Guarding. No: Rebound Back: Present: CVA Tenderness (left-side) Neurological: Present: GCS=15, CN II-XII Intact, Speech Normal, Motor Func Grossly Intact, Normal Sensory Function, Normal Cerebellar Funct, Norm Deep Tendon Reflexes, Gait Normal, Memory Normal, Normal 2Pt Descrimination Skin: Present: Warm, Dry, Normal Color. No: Rashes Psychiatric: Present: Alert, Oriented x 3, Normal Insight, Normal Concentration Medical Decision Making ED Course and Treatment: 01/04/18 13:53 Impression: 57 year old female with left-side abdominal pain radiating to back and migraine. Physical exam shows left-side CVA tendernes; LUQ tenderness with guarding no rebound; normal neuro examination. Differential Diagnosis included but are not limited to: Kidney Stones vs. Migraine Plan: -- Abd/Pelvis CT -- Labs -- Urinalysis -- Tylenol -- Benadryl -- Reglan -- IV Fluids -- Reassess and disposition Prior Visits: Notes and results from previous visits were reviewed. Patient was last seen in the emergency department on 12/20/2017 after being found unresponsive. Patient was discharged home. Progress Notes: 01/04/18 15:42 On re-evaluation, patient feels better and is in no acute distress. Patient no longer has a headache, abdominal pain, or back pain. On re-examination, abdomen soft and non-tender. Labs reviewed, urine negative. I have discussed the results and plan with the patient, who expresses understanding. Patient in agreement with plan to be discharged home. Patient is stable for discharge. Patient was instructed to follow up with physician or return if symptoms worsen or new concerning symptoms arise. Accession No. : [id number] Patient Name / ID : RYLEE SANDY / [id number] PROCEDURE: CT Abdomen and Pelvis without intravenous contrast IMPRESSION: No acute findings - Lab Interpretations Lab Results: 01/04/18 14:29 01/04/18 14:29 Lab Results 01/04/18 14:29: Sodium 139, Potassium 4.1, Chloride 101, Carbon Dioxide 26, Anion Gap 16, BUN 12, Creatinine 0.9, Est GFR ( Amer) > 60, Est GFR (Non- Af Amer) > 60, Random Glucose 78, Calcium 9.1, Total Bilirubin 0.2, AST 17, ALT 20, Alkaline Phosphatase 74, Total Protein 8.4 H, Albumin 3.9, Globulin 4.6, Albumin/Globulin Ratio 0.8 L, Lipase 16 L 01/04/18 14:29: Urine Color Yellow, Urine Appearance Clear, Urine pH 6.0, Ur Specific [place] 1.025, Urine Protein Negative, Urine Glucose (UA) Negative, Urine Ketones Negative, Urine Blood Negative, Urine Nitrate Negative, Urine Bilirubin Negative, Urine Urobilinogen 0.2, Ur Leukocyte Esterase Negative 01/04/18 14:29: WBC 13.1 H D, RBC 4.73, Hgb 15.4, Hct 45.5, MCV 96.2, MCH 32.6, MCHC 33.8, RDW 14.5, Plt Count 344, MPV 9.9, Gran % 73.1 H, Lymph % (Auto) 22.1 , [place] % (Auto) 2.1, Eos % (Auto) 2.5, Baso % (Auto) 0.2, Gran # 9.54 H, Lymph # (Auto) 2.9, [place] # (Auto) 0.3, Eos # (Auto) 0.3, Baso # (Auto) 0.03 - RAD Interpretation Radiology Orders: 01/04/18 13:53 ABD & PELVIS W/O PO OR IV CONT [CT] Stat - Medication Orders Current Medication Orders: Discontinued Medications Acetaminophen (Tylenol 325mg Tab) 975 mg PO STAT STA Stop: 01/04/18 13:55 Last Admin: 01/04/18 14:12 Dose: 975 mg MAR Pain/Vitals Document 01/04/18 14:12 LA (Rec: 01/04/18 14:13 [id number] Pain Reassessment Is This A Pain ReAssessment? No Sleep Is patient sleeping during reassessment? No Presence of Pain Presence of Pain Yes Pain Scale Used Pain Scale Used Numeric Location Left, Right or Bilateral Left Pain Location Body Site Abdomen Diphenhydramine HCl (Benadryl) 50 mg IVP STAT STA Stop: 01/04/18 13:55 Last Admin: 01/04/18 14:12 Dose: 50 mg IVP Administration Document 01/04/18 14:12 LA (Rec: 01/04/18 14:12 LA [id number]) Charges for Administration # of IVP Administrations 1 Sodium Chloride (Sodium Chloride 0.9%) 1,000 mls @ 100 mls/hr IV .Q10H PENDING SALE TO [facility] Last Admin: 01/04/18 14:13 Dose: 100 mls/hr eMAR Start Stop Document 01/04/18 14:13 LA (Rec: 01/04/18 14:13 LA [id number]) Intravenous Solution Start Date 01/04/18 Start Time 14:13 End Date 01/04/18 End time 15:57 Total Infusion Time 104 Metoclopramide HCl (Reglan) 10 mg IVP STAT STA Stop: 01/04/18 13:54 Last Admin: 01/04/18 14:12 Dose: 10 mg IVP Administration Document 01/04/18 14:12 LA (Rec: 01/04/18 14:12 LA [id number]) Charges for Administration # of IVP Administrations 1 - Scribe Statement The provider has reviewed the documentation as recorded by the [facility] Provider Scribe Attestation: All medical record entries made by the Scribe were at my direction and personally dictated by me. I have reviewed the chart and agree that the record accurately reflects my personal performance of the history, physical exam, medical decision making, and the department course for this patient. I have also personally directed, reviewed, and agree with the discharge instructions and disposition. Disposition/Present on Arrival - Present on Arrival Any Indicators Present on Arrival: Yes History of DVT/PE: No History of Uncontrolled Diabetes: No Urinary Catheter: Yes (inserted in ed) History of Decub. Ulcer: No History Surgical Site Infection Following: None - Disposition Have Diagnosis and Disposition been Completed?: Yes Diagnosis: Migraine, Abdominal pain, Back pain Disposition: HOME/ ROUTINE Disposition Time: 15:45 Patient Plan: Discharge Condition: IMPROVED Discharge Instructions (ExitCare): Headache, Adult, Acute Abdomen (Belly Pain) , Adult (DC), Flank Pain (DC) Additional Instructions: Ms Whitaker, thank you for letting us take care of you today. Your provider was Dr. Waters. You were treated for Migraine, Abdominal/Back Pain. The emergency medical care you received today was directed at your acute symptoms. If you were prescribed any medication, please fill it and take as directed. It may take several days for your symptoms to resolve. Return to the Emergency Department if your symptoms worsen, do not improve, or if you have any other problems. Please contact your doctor or call one of the physicians/clinics you have been referred to that are listed on the Patient Visit Information form that is included in your discharge packet. Bring any paperwork you were given at discharge with you along with any medications you are taking to your follow up visit. Our treatment cannot replace ongoing medical care by a primary care provider (PCP) outside of the emergency department. Thank you for allowing the [facility] team to be part of your care today. If you had an X-Ray or CT scan: A Radiologist will review the ED reading if any change in treatment is needed we will contact you. If you had a blood, urine, or wound culture: It will take several days for the results, if any change in treatment is needed we will contact you. If you had an STI test: It will take 48 hours for the results. Please call after 1 week if you have not heard back. Prescriptions: Ranitidine HCl [Zantac] 150 mg PO BID PRN #30 tablet PRN Reason: Pain, Mild (1-3) Referrals: Danny Yañez MD [Staff Provider] - Follow up with primary Forms: [employer] (Libyan)
[2018-01-04 14:46] LABS: BASO # 0.03 K/mm3 (0.0-2.0); BASO % 0.2 % (0.0-3.0); EOS # 0.3 (0.0-0.7); EOS % 2.5 % (1.5-5.0); GRAN # 9.54 (1.4-6.5); GRAN % 73.1 % (50.0-68.0); HEMOGLOBIN 15.4 g/dL (12.0-16.0); LYMPH # 2.9 (1.2-3.4); LYMPH % 22.1 % (22.0-35.0); MEAN CELL VOLUME 96.2 fl (80.0-105.0); MEAN CORPUSCULAR HEMOGLOBIN 32.6 pg (25.0-35.0); MEAN CORPUSCULAR HGB CONC 33.8 g/dl (31.0-37.0); MEAN PLATELET VOLUME 9.9 fl (7.0-11.0); MONO # 0.3 (0.1-0.6); MONO % 2.1 % (1.0-6.0); RBC 4.73 10^6/uL (3.5-6.1); RED CELL DISTRIBUTION WIDTH 14.5 % (11.5-14.5); WHITE BLOOD COUNT 13.1 10^3/ul (4.5-11.0)
[2018-01-04 14:48] LABS: URINE APPEARANCE CLEAR (CLEAR); URINE BILIRUBIN NEGATIVE (NEGATIVE); URINE BLOOD NEGATIVE (NEGATIVE); URINE COLOR YELLOW (YELLOW); URINE GLUCOSE (UA) NEGATIVE (NEGATIVE); URINE LEUKOCYTE ESTERASE NEGATIVE Leu/uL (NEGATIVE); URINE PROTEIN NEGATIVE mg/dL (<30 mg/dL); URINE UROBILINOGEN 0.2 E.U./dL (<1 E.U./dL)
[2018-01-04 14:54] LABS: ALB/GLOB RATIO 0.8 (1.1-1.8); ALBUMIN 3.9 g/dL (3.0-4.8); ALT/SGPT 20 U/L (7-56); AST/SGOT 17 U/L (14-36); BLOOD UREA NITROGEN 12 mg/dL (7-21); CALCIUM 9.1 mg/dL (8.4-10.5); GFR AFRICAN-AMERICAN > 60; GFR NON-AFRICAN AMERICAN > 60; LIPASE 16 U/L (23-300)
--- NOTE | 2018-01-04 15:18 | CT ---
PROCEDURE: CT Abdomen and Pelvis without intravenous contrast HISTORY: left flank pain r/o stones COMPARISON: None. TECHNIQUE: Without contrast.. Contrast Dose: Radiation dose: Total exam DLP = Total exam DLP = 689 mGy-cm. This CT exam was performed using one or more of the following dose reduction techniques: Automated exposure control, adjustment of the mA and/or kV according to patient size, and/or use of iterative reconstruction technique. FINDINGS: LOWER THORAX: Unremarkable. LIVER: Unremarkable. No gross lesion or ductal dilatation. GALLBLADDER AND BILE DUCTS: Unremarkable. PANCREAS: Unremarkable. No gross lesion or ductal dilatation. SPLEEN: Unremarkable. ADRENALS: Unremarkable. No mass. KIDNEYS AND URETERS: Unremarkable. No hydronephrosis. No solid mass. VASCULATURE: Unremarkable. No aortic aneurysm. BOWEL: Unremarkable. No obstruction. No gross mural thickening. APPENDIX: Unremarkable. Normal appendix. PERITONEUM: Unremarkable. No free fluid. No free air. LYMPH NODES: Unremarkable. No enlarged lymph nodes. BLADDER: Unremarkable. REPRODUCTIVE: Unremarkable. BONES: No acute fracture. OTHER FINDINGS: None. IMPRESSION: No acute findings
[2018-01-04 15:46] VITALS: BP 121/60; PULSE 79; TEMP 98
== END 2018-01-04 15:57 | disposition home or self-care (01) ==
LOC: ED 13:02
DX: G43.909 Migraine, unspecified, not intractable, without status migrainosus (principal); R10.9 Unspecified abdominal pain; M54.9 Dorsalgia, unspecified; F17.210 Nicotine dependence, cigarettes, uncomplicated; I50.9 Heart failure, unspecified
CPT/HCPCS: 74176; 80053; 81003; 83690; 85025; 96361; 96374; 96375; 99284; J1200; J2765; J7040